=== PATIENT | male | born 1955 | race Caucasian/White ===

== ENCOUNTER → 2017-07-25 10:03 | Outpatient (CLI) | payer OTHER, MEDICAID, SELFPAY ==
[2017-07-19 11:36] VITALS: TEMP 37.2
--- NOTE | 2017-07-25 10:05 | DI.CT.S_ITS ---
PROCEDURE: CT CHEST ABD PEL W CON INDICATIONS: RESTAGING RENAL CELL CARCINOMA TECHNIQUE: After the administration of oral and intravenous contrast, 5 mm thick sections acquired from the lung apices to the symphysis. 5 mm coronal and sagittal reformats were performed, with additional 7 mm coronal MIP reformats through the lungs. For radiation dose reduction, the following was used: automated exposure control, adjustment of mA and/or kV according to patient size. COMPARISON: [facility], CT, THORAX WITH CONTRAST, 01/21/2017, 16:32. [facility], CT, CHEST/ABD/PEL WITH CONTRAST, 02/18/2017, 8:49. FINDINGS: Image quality: Excellent. CHEST: Lungs and pleura: There is a new small to moderate-sized left pleural effusion with associated mild compressive atelectasis. No new suspicious intrapulmonary mass lesions. The trachea and central airways are patent. Mediastinum: Heart size is normal. There is a new small pericardial effusion. Thoracic aorta and central pulmonary arteries are normal in size. There multiple enlarged confluent mediastinal and hilar lymph nodes which have increased in size compared to the prior study. A architectural representative prevascular anterior mediastinum node now measures up to 2.1 cm in short axis compared to 2.3 cm previously. Most of the nodes demonstrate internal hypoattenuation consistent with necrosis. Esophagus is normal in caliber. There is a small hiatal hernia. Chest wall: There are multiple enlarged left supraclavicular lymph nodes with a architectural representative node measuring 1.7 cm in short axis on series 2 image 13 increased from 1.0 cm previously. 4 Thyroid gland redemonstrates ill-defined left thyroid nodule measuring 2.7 cm. ABDOMEN: Solid organs: There is a small hypodense lesion within the left hepatic lobe measuring up to 8 mm which is too small to characterize but appear stable compared to prior study and likely represents a cyst. Biliary system is non dilated. There are interval postsurgical changes status post left nephrectomy and probable adrenalectomy as well as left splenectomy. The pancreatic body and tail extends into the surgical bed. There is abnormal soft tissue within the surgical bed tracking along the distal pancreas as well as along the left diaphragmatic rika which is thickened with abnormal enhancing soft tissue. The findings most likely represent recurrent or residual disease. There is asymmetric enlargement of the adjacent left psoas muscle which may represent mass involvement or postsurgical edema. There is a lobulated fluid collection in the surgical bed inferiorly measuring up to 7.3 x 3.2 cm likely representing a seroma or lymphocele. Peritoneum and bowel: Stomach and small bowel loops demonstrate normal wall thickness and caliber. There is mild segmental wall thickening of the colon distally including the transverse, descending, and sigmoid colon with mild pericolonic fat stranding. The findings are consistent with a nonspecific colitis. There is a small amount of intraperitoneal free fluid. There is hyperdensity tracking along the peritoneum within the pelvis suggestive of calcification. Nodes and vessels: There are extensive surgical clips within the retroperitoneum consistent with prior lymph node dissection. There are multiple residual enlarged lymph nodes including an aortocaval node measuring up to 1.5 cm and series 2 image 78 which is increased from 0.9 cm previously. There also enlarged retrocrural nodes with a architectural representative node measuring up to 2.3 cm, increased from 1.5 cm previously. Aorta and inferior vena cava are normal in size. Miscellaneous: No ventral hernias. PELVIS: Genitourinary: The bladder demonstrates mild wall thickening with mild associated fat stranding suggestive of a nonspecific cystitis. There is heterogeneous enlargement of the prostate. Miscellaneous: No inguinal hernias or adenopathy. Bones: No suspicious bony lesions. No vertebral body compression fractures. IMPRESSION: 1. Findings consistent with progression of metastatic disease with increased left supraclavicular, mediastinal, and hilar lymphadenopathy as well as increased retrocrural and retroperitoneal lymphadenopathy. 2. Postsurgical changes status post left nephrectomy, adrenalectomy, and splenectomy with abnormal soft tissue in the surgical bed, along the pancreas, and along the left diaphragmatic rika consistent with residual or recurrent disease. 3. Fluid collection within the inferior aspect of the surgical bed consistent with a seroma or lymphocele. 4. Mild segmental wall thickening of the distal colon consistent with a nonspecific mild infectious or inflammatory colitis. 5. Mild bladder wall thickening suggestive of a nonspecific cystitis. 6. New small to moderate-sized left pleural effusion. Dictated by: Ab Murillo M.D. on 07/25/2017 at 16:59 Approved by: Ab Murillo M.D. on 07/25/2017 at 17:12
--- NOTE | 2017-08-30 09:51 | ONC.NAV ---
*Sent bereavement card.
== END ==
PROVIDERS: Family Provider Family Medicine; PCP Family Medicine; Visit Provider Internal Medicine Hematology & Oncology
DX: C64.9 Malignant neoplasm of unspecified kidney, except renal pelvis (principal); R59.0 Localized enlarged lymph nodes; K63.9 Disease of intestine, unspecified; N32.89 Other specified disorders of bladder
CPT/HCPCS: 71260; 74177; Q9967

== ENCOUNTER 2017-08-13 12:17 | Inpatient (IN) | payer OTHER, MEDICAID, SELFPAY ==
[2017-08-13 14:19] VITALS: BP 117/84; PULSE 88; RESP 20; TEMP 36.8; O2SAT 98; BMI 21.5
--- NOTE | 2017-08-13 14:43 | ED_ITS ---
HPI - Abdominal Pain General Chief Complaint: Abdominal Pain Stated Complaint: 2 WKS THROWING UP Time Seen by Provider: 08/13/17 14:35 History of Present Illness HPI narrative: Patient is a 61-year-old male with known renal cell carcinoma currently receiving chemotherapy he is on his 2nd round. He has been vomiting and nauseous for the last 2 weeks his abdomen is also been distending. He is passing gas he had a bowel movement 2 days ago. No fever. He overall does not feel well. MD complaint: abdominal pain Related Data Home Medications Medication Instructions Recorded Confirmed sunitinib [Sutent] 50 mg PO DIRECTED #0 05/30/17 08/13/17 acetaminophen 500 mg PO Q4H PRN 08/13/17 08/13/17 clonazepam 1 mg PO QHS PRN 08/13/17 08/13/17 lorazepam 1 - 2 tab PO Q4H PRN 08/13/17 08/13/17 oxycodone 1 - 2 tab PO Q4H PRN 08/13/17 08/13/17 sennosides [senna] 1 tab PO PRN PRN 08/13/17 08/13/17 Allergies Allergy/AdvReac Type Severity Reaction Status Date / Time No Known Drug Allergies Allergy Verified 07/11/17 14:08 Review of Systems Review of Systems All systems reviewed & are unremarkable except as noted in HPI and below Constitutional Denies chills, Denies fever(s), Denies lethargy and Denies weakness Cardiovascular Denies dyspnea and Denies dyspnea on exertion Respiratory Denies cough, Denies dyspnea, Denies dyspnea on exertion and Denies wheezing Gastrointestinal Gastrointestinal: Reports as per HPI Musculoskeletal Denies back pain, Denies muscle weakness, Denies numbness and Denies tingling Neurologic Denies numbness, Denies tingling and Denies weakness Allergic/Immunologic Denies wheezing PFSH Medical History HTN (hypertension) (Acute) Renal cancer (Acute) Exam Initial Vital Signs Initial Vital Signs: Vital Signs Temperature 98.2 F 08/13/17 14:19 Pulse Rate 88 08/13/17 14:19 Respiratory Rate 20 08/13/17 14:19 Blood Pressure 117/84 H 08/13/17 14:19 Pulse Oximetry 98 08/13/17 14:19 Const General: cooperative and well developed Nutritional Appearance: well nourished Orientation: alert, awake, oriented x3 and not confused Chest Chest: normal inspection of the chest Resp Effort & Inspection: normal respiratory effort, able to speak in complete sentences, no respiratory distress and no use of accessory muscles Auscultation: clear to auscultation bilaterally, no rales, no rhonchi and no wheezes Cardio Rate: regular rate Rhythm: regular rhythm Heart Sounds: no click, no gallops, no murmurs and no rubs Pulses: normal peripheral pulses GI Other: All at distended nontender scar noted. Decreased bowel sounds. No guarding no rebound Skin General: no rashes or lesions noted, No jaundice and No petechiae Neuro General: alert, oriented x3, gait normal and no focal motor deficits Speech: speech normal Course Orders Ordered: ED Orders 08/13/17 14:50 Complete Blood Count AUTO DIFF Stat Comprehensive Metabolic Panel Stat Lipase Stat 08/13/17 14:52 CT abdomen pelvis w con Stat 08/13/17 15:32 Lactate (Lactic Acid) Stat 08/13/17 22:00 BMP [Basic Metabolic Panel] Routine Sodium Chloride (Normal Saline 0.9%) 1,000 mls @ 150 mls/hr IV CONT MELYSSA Last Infusion: 08/13/17 16:44 Dose: 0 mls/hr Admin: 08/13/17 15:10 Dose: 150 mls/hr Morphine Sulfate (Morphine) 4 mg IV Q4HR PRN PRN Reason: Pain, Severe Discontinued Medications Dextrose (D50w) 25 gm IV NOW ONE Stop: 08/13/17 16:35 Last Admin: 08/13/17 16:45 Dose: 25 gm Sodium Chloride (Normal Saline 0.9%) 1,000 mls @ 1,000 mls/hr IV BOLUS ONE Stop: 08/13/17 16:28 Last Admin: 08/13/17 16:45 Dose: 1,000 mls/hr Insulin Human Regular (Humulin R) 10 unit IV NOW ONE Stop: 08/13/17 16:35 Last Admin: 08/13/17 16:45 Dose: 10 unit Metoclopramide HCl (Reglan) 10 mg IV NOW ONE Stop: 08/13/17 17:55 Last Admin: 08/13/17 18:00 Dose: 10 mg Morphine Sulfate (Morphine) 4 mg IV NOW ONE Stop: 08/13/17 14:52 Last Admin: 08/13/17 15:09 Dose: 4 mg Morphine Sulfate (Morphine) 4 mg IV NOW ONE Stop: 08/13/17 18:11 Last Admin: 08/13/17 18:15 Dose: 4 mg Ondansetron HCl (Zofran) 4 mg IV NOW ONE Stop: 08/13/17 14:52 Last Admin: 08/13/17 15:09 Dose: 4 mg Ondansetron HCl (Zofran) 4 mg IV NOW ONE Stop: 08/13/17 15:50 Last Admin: 08/13/17 15:58 Dose: 4 mg Vital Signs - 8 hr 08/13/17 14:19 08/13/17 16:00 08/13/17 17:31 Temperature 98.2 F Pulse Rate 88 88 92 H Respiratory Rate 20 16 22 Blood Pressure 117/84 H Blood Pressure [Left Arm] 136/91 H 148/100 H Pulse Oximetry 98 100 99 08/13/17 18:30 Temperature Pulse Rate 92 H Respiratory Rate 20 Blood Pressure Blood Pressure [Left Arm] 115/84 H Pulse Oximetry 99 MDM - Abdominal Pain Lab Data Result diagrams: 08/13/17 14:50 08/13/17 14:50 Lab Results 08/13/17 08/13/17 08/13/17 Range/Units 14:50 14:50 15:32 WBC 14.3 H (4.5-11.0) X10^3/uL RBC 4.20 L (4.5-5.9) X10^6/uL Hgb 13.6 (13.5-17.5) g/dL Hct 38.6 L (41-53) % MCV 91.8 (80-100) fL MCH 32.3 (26-34) PG MCHC 35.2 (30-36) % RDW 21.0 H (11.6-14.8) % Plt Count 531 H (150-400) X10^3/uL Neut % (Auto) 84.9 H (50-75) % Lymph % (Auto) 10.0 L (25-40) % [place] % (Auto) 4.6 (3-14) % Eos % (Auto) 0.1 L (2-4) % Baso % (Auto) 0.4 (0-2) % Neut # (Auto) 42846 H (8985-3901) /uL RBC Morphology Not Reportable Poikilocytosis 1+ H Anisocytosis 1+ H Sodium 123 L (137-145) mmol/L Potassium 5.9 H (3.4-5.1) mmol/L Chloride 87 L (98-107) mmol/L Carbon Dioxide 25 (22-32) mmol/L BUN 52 H (9-20) mg/dL Creatinine 1.70 H (0.66-1.25) mg/dL Estimated GFR 41.2 L (>60) mL/min BUN/Creatinine Ratio 30.6 H (6-22) Glucose 112 H (80-110) mg/dL Lactate 1.3 (0.7-2.1) mmol/L Calcium 9.7 (8.4-10.2) mg/dL Total Bilirubin 0.7 (0.2-1.3) mg/dL AST 27 (17-59) IU/L ALT 20 L (21-72) IU/L Alkaline Phosphatase 63 (38-126) U/L Total Protein 7.0 (6.3-8.2) g/dL Albumin 4.1 (3.5-5.0) g/dL Globulin 2.9 (1.7-4.1) g/dL Albumin/Globulin Ratio 1.4 (1.0-2.8) Lipase 52 (23-300) U/L Imaging Data CT scan - abdomen: Radiologist's impression: PROCEDURE: CT ABDOMEN PELVIS W CON INDICATIONS: 61 year-old male with renal cell carcinoma and persistent vomiting. TECHNIQUE: After the administration of intravenous contrast, 5 mm thick sections acquired from the diaphragm to the symphysis. 5 mm coronal and sagittal reformats were acquired. For radiation dose reduction, the following was used: automated exposure control, adjustment of mA and/or kV according to patient size. COMPARISON: [facility], CT, CT CHEST ABD PEL W CON, 07/25/2017, 11:07. [facility], CT, CHEST/ABD/PEL WITH CONTRAST, 02/18/2017, 8:49. [facility], CT, IVP (ABD & PEL WWO CONTRAST), 01/04/2017, 9:15. FINDINGS: Image quality: Excellent. ABDOMEN: Lung bases: There is persistent small dependent left pleural effusion. Lung bases are clear. Heart size is normal. Solid organs: Liver is normal in size, with 8 mm anterior left hepatic lobe cyst as before. Gallbladder wall thickness is normal. Biliary system is non dilated. Pancreas enhances normally. Spleen is surgically absent. No adrenal nodules; left adrenal gland appears surgically absent. Patient is status post left nephrectomy as well, with soft tissue nodularity adjacent to the pancreatic tail are suspicious for local residual viable tumor. Right kidney demonstrates normal size, without hydronephrosis. Peritoneum and bowel: Large abdominal and pelvic ascites is now present, along with multifocal micronodular peritoneal enhancement. There is multifocal nodular enhancement of the greater omentum as well. Bowel loops demonstrate normal wall thickness and caliber. No free air. Nodes and vessels: There is persistent lenticular rim enhancing postoperative fluid collection anterior to the left psoas muscle. No retroperitoneal or mesenteric adenopathy by size criteria. Aorta and inferior vena cava are normal in size. Miscellaneous: No ventral hernias. PELVIS: Genitourinary: The bladder is incompletely distended at the time of scan. Prostate gland is normal in overall size. Miscellaneous: No inguinal hernias or adenopathy. Bones: No suspicious bony lesions. No vertebral body compression fractures. IMPRESSION: 1. Interval development of florid peritoneal carcinomatosis from renal cell carcinoma, with large abdominal and pelvic ascites, as well as diffuse peritoneal nodularity and greater omental involvement. No bowel obstruction. 2. Persistent small dependent left pleural effusion. 3. Status post left nephrectomy and adrenalectomy and splenectomy, with findings suspicious for residual viable neoplasm. Postoperative seroma or lymphocele anterior to the left psoas muscle persists. Dictated by: Luis E Simon M.D. on 08/13/2017 at 15:57 MDM Narrative Medical decision making narrative: Patient is hyponatremic and hyperkalemic with worsening metastasis and new onset ascites. He will be admitted for further management. He is given insulin and glucose for hyperkalemia. Pain is much better after morphine for his Dr. Quintanilla in the ED to see and evaluate patient. Happily accepts him. Discharge Plan Departure Patient Disposition: Admitted As Inpatient Clinical Impression: Acute hyponatremia, Acute hyperkalemia Admit Date/Time: 08/13/17 18:35 Admit Provider: Ehsan Quintanilla
--- NOTE | 2017-08-13 14:52 | DI.CT.S_ITS ---
PROCEDURE: CT ABDOMEN PELVIS W CON INDICATIONS: 61 year-old male with renal cell carcinoma and persistent vomiting. TECHNIQUE: After the administration of intravenous contrast, 5 mm thick sections acquired from the diaphragm to the symphysis. 5 mm coronal and sagittal reformats were acquired. For radiation dose reduction, the following was used: automated exposure control, adjustment of mA and/or kV according to patient size. COMPARISON: [facility], CT, CT CHEST ABD PEL W CON, 07/25/2017, 11:07. [facility], CT, CHEST/ABD/PEL WITH CONTRAST, 02/18/2017, 8:49. [facility], CT, IVP (ABD & PEL WWO CONTRAST), 01/04/2017, 9:15. FINDINGS: Image quality: Excellent. ABDOMEN: Lung bases: There is persistent small dependent left pleural effusion. Lung bases are clear. Heart size is normal. Solid organs: Liver is normal in size, with 8 mm anterior left hepatic lobe cyst as before. Gallbladder wall thickness is normal. Biliary system is non dilated. Pancreas enhances normally. Spleen is surgically absent. No adrenal nodules; left adrenal gland appears surgically absent. Patient is status post left nephrectomy as well, with soft tissue nodularity adjacent to the pancreatic tail are suspicious for local residual viable tumor. Right kidney demonstrates normal size, without hydronephrosis. Peritoneum and bowel: Large abdominal and pelvic ascites is now present, along with multifocal micronodular peritoneal enhancement. There is multifocal nodular enhancement of the greater omentum as well. Bowel loops demonstrate normal wall thickness and caliber. No free air. Nodes and vessels: There is persistent lenticular rim enhancing postoperative fluid collection anterior to the left psoas muscle. No retroperitoneal or mesenteric adenopathy by size criteria. Aorta and inferior vena cava are normal in size. Miscellaneous: No ventral hernias. PELVIS: Genitourinary: The bladder is incompletely distended at the time of scan. Prostate gland is normal in overall size. Miscellaneous: No inguinal hernias or adenopathy. Bones: No suspicious bony lesions. No vertebral body compression fractures. IMPRESSION: 1. Interval development of florid peritoneal carcinomatosis from renal cell carcinoma, with large abdominal and pelvic ascites, as well as diffuse peritoneal nodularity and greater omental involvement. No bowel obstruction. 2. Persistent small dependent left pleural effusion. 3. Status post left nephrectomy and adrenalectomy and splenectomy, with findings suspicious for residual viable neoplasm. Postoperative seroma or lymphocele anterior to the left psoas muscle persists. Dictated by: Luis E Simon M.D. on 08/13/2017 at 15:57 Approved by: Luis E Simon M.D. on 08/13/2017 at 16:10
[2017-08-13 15:08] LABS: Add Manual Diff / Slide Review NO; Basophils Percent Auto 0.4 % (0-2); Eosinophils Percent Auto 0.1 % (2-4); Hematocrit 38.6 % (41-53); Hemoglobin 13.6 g/dL (13.5-17.5); Mean Corpuscular HGB Conc 35.2 % (30-36); Mean Corpuscular Hemoglobin 32.3 PG (26-34); Mean Corpuscular Volume 91.8 fL (80-100); Monocytes Percent Auto 4.6 % (3-14); Neutrophils Absolute Auto 12100 /uL (3000-5900); Neutrophils Percent Auto 84.9 % (50-75); Platelet Count 531 X10^3/uL (150-400); White Blood Cell Count 14.3 X10^3/uL (4.5-11.0)
[2017-08-13] MEDS: ONDANSETRON 4 MG/2 ML INJ IV ×3 (15:09→21:44)
[2017-08-13] MEDS: MORPHINE 4 MG/ML INJ IV ×3 (15:09→21:44)
[2017-08-13] MEDS: SODIUM CHLORIDE 0.9% 1,000 ML 150 ML IV ×2 (15:10→22:24)
[2017-08-13 15:12] LABS: Alanine Aminotransferase 20 IU/L (21-72); Albumin 4.1 g/dL (3.5-5.0); Albumin Globulin Ratio 1.4 (1.0-2.8); Alkaline Phosphatase 63 U/L (38-126); Aspartate Aminotransferase 27 IU/L (17-59); BUN Creatinine Ratio 30.6 (6-22); Bilirubin Total 0.7 mg/dL (0.2-1.3); Blood Urea Nitrogen 52 mg/dL (9-20); Calcium 9.7 mg/dL (8.4-10.2); Carbon Dioxide 25 mmol/L (22-32); Chloride 87 mmol/L (98-107); Estimated Glomerular Filt Rate 41.2 mL/min (>60); Globulin 2.9 g/dL (1.7-4.1); Glucose 112 mg/dL (80-110); HEMOLYSIS 20 (0-50); Lipase 52 U/L (23-300); Sodium 123 mmol/L (137-145)
[2017-08-13 15:23] LABS: Potassium 5.9 mmol/L (3.4-5.1)
[2017-08-13 15:37] LABS: Anisocytosis 1+; Poikilocytosis 1+
[2017-08-13 15:57] LABS: Lactate (Lactic Acid) 1.3 mmol/L (0.7-2.1)
[2017-08-13 16:00] VITALS: BP 136/91; PULSE 88; RESP 16; O2SAT 100
[2017-08-13] MEDS: DEXTROSE 50 % IN WATER 25 GM/50 ML SYRINGE IV (16:45)
[2017-08-13] MEDS: SODIUM CHLORIDE 0.9% 1,000 ML 1000 ML IV (16:45)
[2017-08-13] MEDS: INSULIN REGULAR 100 UNIT/ML 3 ML VIAL 10 UNIT IV (16:45)
[2017-08-13 17:31] VITALS: BP 148/100; PULSE 92; RESP 22; O2SAT 99
[2017-08-13] MEDS: METOCLOPRAMIDE 10 MG/2 ML INJ IV (18:00)
[2017-08-13 18:30] VITALS: BP 115/84; PULSE 92; RESP 20; O2SAT 99
--- NOTE | 2017-08-13 19:22 | P.HP_ITS ---
History of Present Illness Chief complaint: Acute hyponatremia, acute hyperkalemia Narrative: Braulio Salinas is a 61 year old male admitted from the emergency room after presenting for weakness abdominal discomfort and distention and worsening of vomiting. Patient has history of metastatic renal cell carcinoma following nephrectomy. Patient has had progressive weakness. Surgically asplenic and chronic anemia and the setting of his oncology chemotherapy surgical treatment and progression. In the emergency room patient found to be very distended of abdomen of seem to be fluid filled and CT scan showed ascites as significant amount. Also showed evidence of implant on the peritoneum across the abdomen. Patient found to be hyponatremic and hyperkalemic as well as to have a an increased white count. He is aware that his treatment at this point was palliative not a curative. Patient History Medical History HTN (hypertension) (Acute) Renal cancer (Acute) Anemia (Acute) Ascites, malignant (Acute) Depression (Acute) Family & Social History Safety & Behavioral: Feels Safe in Current Yes Environment Been Physically Hurt or No Threatened By a Person Tobacco & Substance use: Substance Use Type marijuana Meds Home Medications Medication Instructions Recorded Confirmed Type sunitinib [Sutent] 50 mg PO DIRECTED #0 05/30/17 08/13/17 History acetaminophen 500 mg PO Q4H PRN 08/13/17 08/13/17 History clonazepam 1 mg PO QHS PRN 08/13/17 08/13/17 History lorazepam 1 - 2 tab PO Q4H PRN 08/13/17 08/13/17 History oxycodone 1 - 2 tab PO Q4H PRN 08/13/17 08/13/17 History sennosides [senna] 1 tab PO PRN PRN 08/13/17 08/13/17 History Allergies Allergy/AdvReac Type Severity Reaction Status Date / Time No Known Drug Allergies Allergy Verified 07/11/17 14:08 Exam Vital Signs (past 8 hours): Vital Signs - 8 hr 3 08/13/17 14:19 08/13/17 16:00 08/13/17 17:31 Temperature 98.2 F Pulse Rate 88 88 92 H Respiratory Rate 20 16 22 Blood Pressure 117/84 H Blood Pressure [Left Arm] 136/91 H 148/100 H Pulse Oximetry 98 100 99 3 08/13/17 18:30 Temperature Pulse Rate 92 H Respiratory Rate 20 Blood Pressure Blood Pressure [Left Arm] 115/84 H Pulse Oximetry 99 Pulse Oximetry 99 Oxygen Delivery Method Room Air Narrative Exam Narrative: Patient sitting in bed slightly jaundiced emaciated and with no significant distention of abdomen. Clear mind answer questions clearly PERRLA EOMs intact Lungs decreased breath sounds at bases but no rales CV is shows regular rate and rhythm without murmur or S3 no significant dependent edema Abdomen has nausea vomiting and quite distension has a lot of pressure and vague diffuse discomfort. Back without mass or undue tenderness Skin jaundiced throughout pale yellow color Extremities weak and emaciated with symmetrical movement neuro intact sensation and had Neuro shows patient alert speech clear cognitive function intact sensation and motor sensory are symmetrical Objective Labs Result Diagrams: 08/13/17 14:50 08/13/17 14:50 Labs: Laboratory Results - last 24 hr 08/13/17 08/13/17 08/13/17 14:50 14:50 15:32 WBC 14.3 H RBC 4.20 L Hgb 13.6 Hct 38.6 L MCV 91.8 MCH 32.3 MCHC 35.2 RDW 21.0 H Plt Count 531 H Neut % (Auto) 84.9 H Lymph % (Auto) 10.0 L [place] % (Auto) 4.6 Eos % (Auto) 0.1 L Baso % (Auto) 0.4 Neut # (Auto) 65883 H RBC Morphology Not Reportable Poikilocytosis 1+ H Anisocytosis 1+ H Sodium 123 L Potassium 5.9 H Chloride 87 L Carbon Dioxide 25 BUN 52 H Creatinine 1.70 H Estimated GFR 41.2 L BUN/Creatinine Ratio 30.6 H Glucose 112 H Lactate 1.3 Calcium 9.7 Total Bilirubin 0.7 AST 27 ALT 20 L Alkaline Phosphatase 63 Total Protein 7.0 Albumin 4.1 Globulin 2.9 Albumin/Globulin Ratio 1.4 Lipase 52 Assessment & Plan Plan: Plan: Assessment 1. Metastatic renal cell carcinoma papillary type 2 post left nephrectomy with splenectomy. Patient is subsequently over the last few weeks developed ascites and what looks like on CT scan now to be evidence of metastatic disease. His oncology providers had had had him on Sutent as a palliative treatment and patient is obviously failed that with progression of his disease. Assessment 2. Weakness and fatigue. This multifactorial certainly related to his underlying malignancy. May also be acutely aggravated by overall mild malnutrition and dehydration. Has also got hypo natremia to 123 and hyperkalemia which could affect this as well. Will add have patient on IV fluids and monitor those numbers relook at 10 this evening make sure they are improving and again look in the morning given normal saline going at this point. Will also keep anti nausea and pain Medications in place Assessment 3. Hyper scaly Iva. I suspect this to the renal function and electrolyte abnormalities with the ice and ascites and dehydration and vomiting. Will try to replace fluid and get the patient better hydrated and will use normal saline to try to improve his hypo natremia as well. Assessment 4. Patient's ascites most probably malignant at this point. I will discuss with Oncology in the morning about was there be any benefit for this gentleman with tapping his abdomen for some fluid to look for malignancy. I think that that is probably a commode point. Assessment 5. Pain. Neck is patient is got a ladder reasons for discomfort with distended abdomen and postoperative issues overall weakness. Will use MS for control tonight. Patient is a do not resuscitate candidate at this point Assessment 6 hypertension patient not hypertensive at this point will just monitor blood pressure and not continue his antihypertensives for now.
[2017-08-13 19:30] VITALS: BP 126/94; PULSE 96; RESP 16; TEMP 36.4; O2SAT 99
[2017-08-13 19:32] VITALS: BP 121/84; PULSE 91; RESP 14; O2SAT 98
[2017-08-13 19:34] VITALS: BMI 21.5
--- NOTE | 2017-08-13 20:09 | PC.NURSE ---
Pt arrived from ER to room 221. Alert/oriented. Stats minimal discomfort but no more than usual. IV infusing as per orders via pump w/o incidence. Assisted pt to BR, pt states he lost balance and went to knees and side. No apparent injury, notified, pt denies any discomfort. Call light w/in reach, bed alarm on for pt safety.
[2017-08-13 22:27] LABS: BUN Creatinine Ratio 33.6 (6-22); Blood Urea Nitrogen 47 mg/dL (9-20); Calcium 8.7 mg/dL (8.4-10.2); Carbon Dioxide 23 mmol/L (22-32); Chloride 92 mmol/L (98-107); Estimated Glomerular Filt Rate 51.5 mL/min (>60); Glucose 100 mg/dL (80-110); HEMOLYSIS 23 (0-50); Sodium 123 mmol/L (137-145)
[2017-08-13 22:28] LABS: Potassium 5.4 mmol/L (3.4-5.1)
--- NOTE | 2017-08-13 23:49 | PC.NURSE ---
[id number]- Dr. Guerin called via answering service to report, pt'.s requesting [employer] for pain. Awaiting call back, will monitor.
[2017-08-14] VITALS (8 sets, daily range): BP systolic 109–149; BP diastolic 61–103; PULSE 83–95; RESP 16–98; TEMP 35.9–36.9; O2SAT 85–98; BMI 22.7
--- NOTE | 2017-08-14 01:44 | PC.NURSE ---
DR. Guerin called back ordered Dilaudid EGG BUYER set @ 0.2 mg. every 10 mins. with 6 mg. 4 hours limit. EGG BUYER initiated & dosages verified with Lani Bo RN. & also verified with Co-ordinator Vielka Mitchell RN. Pt. Instructed how to use his EGG BUYER. Reported I used a EGG BUYER before when I had my surgery Will monitor.
[2017-08-14] MEDS: ONDANSETRON 4 MG/2 ML INJ IV ×4 (04:48→21:34)
[2017-08-14] MEDS: SODIUM CHLORIDE 0.9% 1,000 ML 150 ML IV ×3 (05:02→20:42)
[2017-08-14] MEDS: HYDROMORPHONE PCA 6 MG/30 ML PCA.VIAL IV ×2 (05:48→14:14)
[2017-08-14 05:57] LABS: Add Manual Diff / Slide Review NO; Basophils Percent Auto 0.3 % (0-2); Hematocrit 37.3 % (41-53); Hemoglobin 12.8 g/dL (13.5-17.5); Lymphocytes Percent Auto 4.7 % (25-40); Mean Corpuscular HGB Conc 34.2 % (30-36); Mean Corpuscular Hemoglobin 31.8 PG (26-34); Mean Corpuscular Volume 92.9 fL (80-100); Monocytes Percent Auto 8.6 % (3-14); Neutrophils Absolute Auto 10200 /uL (3000-5900); Neutrophils Percent Auto 86.4 % (50-75); Platelet Count 533 X10^3/uL (150-400); Red Blood Cell Count 4.01 X10^6/uL (4.5-5.9); Red Cell Distribution Width 21.2 % (11.6-14.8); White Blood Cell Count 11.8 X10^3/uL (4.5-11.0)
[2017-08-14 06:06] LABS: Alanine Aminotransferase 22 IU/L (21-72); Albumin 3.3 g/dL (3.5-5.0); Albumin Globulin Ratio 1.2 (1.0-2.8); Alkaline Phosphatase 54 U/L (38-126); Aspartate Aminotransferase 30 IU/L (17-59); BUN Creatinine Ratio 29.3 (6-22); Bilirubin Total 0.7 mg/dL (0.2-1.3); Blood Urea Nitrogen 44 mg/dL (9-20); Calcium 8.9 mg/dL (8.4-10.2); Carbon Dioxide 25 mmol/L (22-32); Chloride 92 mmol/L (98-107); Estimated Glomerular Filt Rate 47.6 mL/min (>60); Globulin 2.8 g/dL (1.7-4.1); Glucose 98 mg/dL (80-110); HEMOLYSIS < 15 (0-50); Sodium 126 mmol/L (137-145); Total Protein 6.1 g/dL (6.3-8.2)
[2017-08-14 06:07] LABS: Potassium 5.4 mmol/L (3.4-5.1)
[2017-08-14 07:09] LABS: Anisocytosis 1+; Poikilocytosis 1+
--- NOTE | 2017-08-14 08:48 | DI.US.S_ITS ---
PROCEDURE: US PARACENTESIS INDICATIONS: pericentisis TECHNIQUE: The indications, alternatives, benefits, risks, and complications of the procedure were explained to the patient. Written informed consent was obtained and placed in the chart. The abdomen and pelvis were examined sonographically, and an appropriate site was chosen for paracentesis. The skin was prepared and draped in the usual sterile fashion, and 1% lidocaine was infiltrated from the skin down through the peritoneal surface. A 19-gauge catheter-covered needle was then introduced into the peritoneal space, the catheter was advanced and the needle was withdrawn, and thereafter peritoneal fluid was withdrawn. The catheter was then removed and a dressing was applied. The fluid was discarded if the clinician did not order diagnostic testing of the fluid. COMPARISON: None. FINDINGS: Access site: Left of midline lower abdomen Needle: One-Step centesis catheter with introducer needle. Fluid volume and description: Unchanged clear yellow fluid, 5600 cc removed Fluid sent for diagnostic testing: Not requested Medications: 1% lidocaine for local anaesthesia. Complications: None. IMPRESSION: Successful ultrasound-guided paracentesis. Dictated by: Arthur Hoff M.D. on 08/14/2017 at 12:32 Approved by: Arthur Hoff M.D. on 08/14/2017 at 12:32
[2017-08-14 10:30] LABS: Prothrombin Time 10.8 SECONDS (10.1-12.7)
--- NOTE | 2017-08-14 12:24 | PC.NURSE ---
US assisted paracentesis at 1100 resulted with 5.6L of fluid removed. BP post procedure at 149/103. BP @ 1205 at 145/98. Patient states he has zero pain, denies SOB or nausea.
--- NOTE | 2017-08-14 14:06 | CM.DANOTE ---
DCP/Assessment: Reviewed chart. Patient is a 61yr old male admitted to [facility] with acute hyponatremia and hyperkalemia Primary Payor is 1)[employer] 2)Medicaid. PCP is Dr. Quintanilla. Met with patient and significant other/Linda at bedside explained CM/SW role. Patient alert and oriented at time of visit. Patient reports that he resides with Linda in [place] Patient actively seeks CA treatment for renal CA at [facility]. Pt. reports that he uses cane to ambulate on occasion. Pt. indicates that he is very [place] in both ears and does not use hearing aides. Patient does not drive at baseline and relies on family to provide transport to/from appointments. At this time patient does not anticipate any d/c planning needs. Notified patient and significant other/Linda that CM team would continue to follow throughout hospitalization. Patient aware and agreeable. P: Home when medically stable. Follow closely for d/c planning needs. VENKATESH Mccarthy
[2017-08-14] MEDS: SODIUM CHLORIDE 0.9% 1,000 ML 100 ML IV (20:37)
[2017-08-14] MEDS: HYDROMORPHONE PCA 6 MG/30 ML PCA.VIAL 4.6 MG IV (22:58)
[2017-08-15 00:17] VITALS: BP 110/67; PULSE 83; RESP 20; TEMP 37.2; O2SAT 94
[2017-08-15 04:39] VITALS: BP 107/63; PULSE 88; RESP 19; TEMP 37.1; O2SAT 95
[2017-08-15] MEDS: ONDANSETRON 4 MG/2 ML INJ IV (05:22)
[2017-08-15] MEDS: HYDROMORPHONE PCA 6 MG/30 ML PCA.VIAL IV (05:34)
[2017-08-15 06:01] LABS: Add Manual Diff / Slide Review NO; Basophils Percent Auto 0.5 % (0-2); Eosinophils Percent Auto 0.2 % (2-4); Hematocrit 34.4 % (41-53); Hemoglobin 11.8 g/dL (13.5-17.5); Lymphocytes Percent Auto 7.8 % (25-40); Mean Corpuscular HGB Conc 34.3 % (30-36); Mean Corpuscular Hemoglobin 31.7 PG (26-34); Mean Corpuscular Volume 92.6 fL (80-100); Monocytes Percent Auto 6.3 % (3-14); Neutrophils Absolute Auto 10100 /uL (3000-5900); Neutrophils Percent Auto 85.2 % (50-75); Platelet Count 480 X10^3/uL (150-400); Red Blood Cell Count 3.71 X10^6/uL (4.5-5.9); Red Cell Distribution Width 21.3 % (11.6-14.8); White Blood Cell Count 11.9 X10^3/uL (4.5-11.0)
[2017-08-15 06:02] LABS: Alanine Aminotransferase 25 IU/L (21-72); Albumin 2.6 g/dL (3.5-5.0); Albumin Globulin Ratio 1.1 (1.0-2.8); Alkaline Phosphatase 47 U/L (38-126); Aspartate Aminotransferase 21 IU/L (17-59); BUN Creatinine Ratio 26.2 (6-22); Bilirubin Total 0.5 mg/dL (0.2-1.3); Blood Urea Nitrogen 34 mg/dL (9-20); Calcium 8.2 mg/dL (8.4-10.2); Carbon Dioxide 24 mmol/L (22-32); Chloride 96 mmol/L (98-107); Estimated Glomerular Filt Rate 56.1 mL/min (>60); Globulin 2.4 g/dL (1.7-4.1); Glucose 85 mg/dL (80-110); HEMOLYSIS < 15 (0-50); Sodium 125 mmol/L (137-145)
[2017-08-15 06:09] LABS: Potassium 5.4 mmol/L (3.4-5.1)
[2017-08-15] MEDS: LORazepam 2 MG/ML SYRINGE 0.5 MG IV (06:27)
[2017-08-15 07:40] VITALS: BP 107/74; PULSE 91; RESP 16; TEMP 36.6; O2SAT 97
[2017-08-15] MEDS: ONDANSETRON 4 MG ODT 8 MG PO (09:45)
[2017-08-15] MEDS: OXYCODONE IR 10 MG TABLET PO ×2 (10:17→14:51)
[2017-08-15] MEDS: METOCLOPRAMIDE HCL 10 MG TABLET PO (10:21)
--- NOTE | 2017-08-15 10:46 | CM.DPNOTE ---
DC Note: DC order in place today. RN somewhat concerned about pt's metastatic disease process and pt/partner going home, pt quite vulnerable. Met w/pt and his partner Linda. Linda explains her main concern was about DC medications and Dr Quintanilla addressed these concerns. Pt/partner eager to return home and feel they have what they need. Pt is expected to f/u w/his Oncology provider to review options for the build up of fluid/routine taps ? etc. Encouraged pt/partner to contact Oncology Angel Mariee w/any questions or concerns. Both appreciative of the visit. Deny further needs. VENKATESH Urias
[2017-08-15 11:44] VITALS: BP 114/74; PULSE 86; RESP 16; TEMP 37.1; O2SAT 96
[2017-08-15] MEDS: LORazepam 1 MG TABLET PO (14:51)
== END 2017-08-15 15:40 | disposition expired | DRG 240 ==
LOC: ED 17:41 → AC 18:36
PROVIDERS: Admitting Provider Family Medicine; Emergency Provider Emergency Medicine; Family Provider Family Medicine; PCP Family Medicine; Visit Provider Family Medicine
DX: C78.6 Secondary malignant neoplasm of retroperitoneum and peritoneum (principal); R18.0 Malignant ascites; C64.9 Malignant neoplasm of unspecified kidney, except renal pelvis; E87.1 Hypo-osmolality and hyponatremia; C79.89 Secondary malignant neoplasm of other specified sites; E87.5 Hyperkalemia; E43 Unspecified severe protein-calorie malnutrition; E86.0 Dehydration; G89.3 Neoplasm related pain (acute) (chronic); D63.0 Anemia in neoplastic disease; I10 Essential (primary) hypertension; Z68.22 Body mass index [BMI] 22.0-22.9, adult; R53.0 Neoplastic (malignant) related fatigue; R11.2 Nausea with vomiting, unspecified
CPT/HCPCS: 36415; 36591; 49083; 74177; 80048; 80053; 83605; 83690; 85025; 85610; 96374; 96375; 96376; 99282; 99284; J2060; J2270; J2405; J2765; Q9967

== ENCOUNTER 2017-08-18 18:38 | Inpatient (IN) | payer OTHER, MEDICAID, SELFPAY ==
[2017-08-18 19:04] VITALS: BP 105/84; PULSE 103; RESP 18; TEMP 36.5; O2SAT 99
[2017-08-18 20:59] LABS: Add Manual Diff / Slide Review NO; Basophils Percent Auto 0.4 % (0-2); Eosinophils Percent Auto 0.1 % (2-4); Hematocrit 39.9 % (41-53); Hemoglobin 13.8 g/dL (13.5-17.5); Lymphocytes Percent Auto 4.3 % (25-40); Mean Corpuscular HGB Conc 34.5 % (30-36); Mean Corpuscular Hemoglobin 32.1 PG (26-34); Mean Corpuscular Volume 93.1 fL (80-100); Monocytes Percent Auto 3.3 % (3-14); Neutrophils Absolute Auto 12400 /uL (3000-5900); Neutrophils Percent Auto 91.9 % (50-75); Platelet Count 430 X10^3/uL (150-400); Red Blood Cell Count 4.29 X10^6/uL (4.5-5.9); Red Cell Distribution Width 20.9 % (11.6-14.8); White Blood Cell Count 13.4 X10^3/uL (4.5-11.0)
[2017-08-18] MEDS: ONDANSETRON 4 MG/2 ML INJ IV ×2 (21:01→22:33)
[2017-08-18 21:17] LABS: Prothrombin Time 10.6 SECONDS (10.1-12.7)
[2017-08-18 21:28] LABS: Anisocytosis 1+
[2017-08-18 21:29] LABS: Poikilocytosis 1+; Target Cells 1+
[2017-08-18 21:31] LABS: Alanine Aminotransferase 24 IU/L (21-72); Albumin 3.3 g/dL (3.5-5.0); Albumin Globulin Ratio 1.2 (1.0-2.8); Alkaline Phosphatase 52 U/L (38-126); Aspartate Aminotransferase 32 IU/L (17-59); BUN Creatinine Ratio 22.7 (6-22); Bilirubin Total 0.6 mg/dL (0.2-1.3); Blood Urea Nitrogen 34 mg/dL (9-20); Calcium 8.9 mg/dL (8.4-10.2); Carbon Dioxide 25 mmol/L (22-32); Chloride 90 mmol/L (98-107); Estimated Glomerular Filt Rate 47.6 mL/min (>60); Globulin 2.7 g/dL (1.7-4.1); Glucose 96 mg/dL (80-110); HEMOLYSIS < 15 (0-50); Lipase 43 U/L (23-300); Sodium 124 mmol/L (137-145)
[2017-08-18 21:34] VITALS: BP 117/90; PULSE 93; RESP 24; O2SAT 95
[2017-08-18 21:34] LABS: Potassium 5.9 mmol/L (3.4-5.1)
[2017-08-18 22:16] VITALS: BP 117/91; PULSE 100; RESP 19; O2SAT 96
[2017-08-18] MEDS: HYDROMORPHONE 0.5 MG INJ 1 MG IV (22:30)
--- NOTE | 2017-08-18 22:30 | ED_ITS ---
HPI - Abdominal Pain General Chief Complaint: Abdominal Pain Stated Complaint: fluid build up in stomach,vomitting Time Seen by Provider: 08/18/17 19:29 Source: patient Mode of arrival: ambulatory Limitations: no limitations History of Present Illness HPI narrative: Patient with history of renal cell carcinoma and the left nephrectomy presents to the emergency department with a recurrence of ascites and abdominal fullness. Additionally he has profound generalized weakness and a decreased appetite. He has not been eating or drinking for the past few days. He is taking oral chemotherapy for palliative reasons which is managed by local cancer care. He was recently admitted into the hospital with newly discovered ascites which was drained during the admission. He was admitted on August 13 and discharged after a few days. MD complaint: abdominal pain Onset (ago): day(s) Pain Consistency: constant Location: diffuse Severity: moderate Quality: cramping Radiation: none Migration to: no migration Relieving factors: nothing Exacerbating factors: nothing Associated symptoms: nausea, anorexia and other Related Data Home Medications Medication Instructions Recorded Confirmed sunitinib [Sutent] 50 mg PO DIRECTED #0 05/30/17 08/13/17 acetaminophen 500 mg PO Q4H PRN 08/13/17 08/13/17 sennosides 1 tab PO PRN PRN 08/13/17 08/13/17 Previous Rx's Medication Instructions Recorded lorazepam 1 mg PO TID #30 tab 08/15/17 metoclopramide HCl [Reglan] 10 mg PO Q6H #30 tab 08/15/17 ondansetron 8 mg PO Q6HR 14 Days #30 tab 08/15/17 oxycodone 10 mg PO Q4-6H PRN #30 tab 08/15/17 Allergies Allergy/AdvReac Type Severity Reaction Status Date / Time No Known Drug Allergies Allergy Verified 07/11/17 14:08 Review of Systems Review of Systems All systems reviewed & are unremarkable except as noted in HPI and below Constitutional Denies chills, Reports fatigue, Denies fever(s), Denies lethargy and Denies weakness Eyes Denies change in vision, Denies eye discharge, Denies irritation and Denies loss of vision ENT Ears, Nose, Mouth, and Throat: Denies change in voice, Denies neck pain and Denies sore throat Cardiovascular Denies chest pain, Denies irregular heart rhythm, Denies lightheadedness, Denies palpitations, Denies dyspnea, Denies dyspnea on exertion and Denies orthopnea Respiratory Denies cough, Denies dyspnea, Denies dyspnea on exertion and Denies wheezing Gastrointestinal Gastrointestinal: Reports abdominal pain, Reports bloating, Denies change in bowel habits, Denies diarrhea, Denies nausea and Denies vomiting Genitourinary Denies hematuria, Denies flank pain, Denies urinary incontinence and Denies urinary urgency Musculoskeletal Denies neck pain Integumentary/Breasts Denies pruritus, Denies erythema, Denies rash and Denies wounds Neurologic Denies confusion, Denies loss of vision and Denies weakness Psychiatric Denies anxiety, Denies confusion, Denies depression, Denies homicidal ideation and Denies suicidal ideation Endocrine Reports fatigue and Denies palpitations Hematologic/Lymphatic Denies easy bruising Allergic/Immunologic Denies wheezing PFSH Medical History HTN (hypertension) (Acute) Renal cancer (Acute) Anemia (Acute) Ascites, malignant (Acute) Depression (Acute) Social History household members: spouse, family and children Smoking Status: Never smoker alcohol intake: never Exam Narrative Exam Narrative: 61-year-old male is chronically ill, obviously dehydrated and malnourished. Initial Vital Signs Initial Vital Signs: Vital Signs Temperature 97.7 F 08/18/17 19:04 Pulse Rate 103 H 08/18/17 19:04 Respiratory Rate 18 08/18/17 19:04 Blood Pressure 105/84 H 08/18/17 19:04 Pulse Oximetry 99 08/18/17 19:04 Const General: in distress, disheveled, frail appearing and ill appearing Nutritional Appearance: underweight Orientation: alert, awake and oriented x3 HENMT Head: normal to inspection and other (Temporal wasting) Ears: hearing grossly normal bilaterally Nose: external nose normal Eyes General: appearance normal, both eyes and all related structures Eyelids: eyelids normal Conjunctivae: conjunctivae normal Sclera: sclerae normal Pupils: PERRL EOM: EOM intact bilaterally Neck Neck: normal visual inspection, trachea midline, No lymphadenopathy, No midline deformity and No JVD Lymphatic: No lymphedema Resp Effort & Inspection: normal respiratory effort, able to speak in complete sentences, no respiratory distress and no use of accessory muscles Auscultation: clear to auscultation bilaterally, no rales, no rhonchi and no wheezes Cardio Rate: regular rate Rhythm: regular rhythm Heart Sounds: no click, no gallops, no murmurs and no rubs Pulses: normal peripheral pulses GI Inspection: distended, No visible peristalsis and No caput medusae present Palpation: soft, no hepatosplenomegaly, No guarding, No pulsatile mass, No tender and ascites Percussion: fluid wave Auscultation: normal bowel sounds Back/Spine/Pelvis Back: No CVA tenderness Cervical Spine: cervical ROM normal and No pain with cervical ROM Thoracic/Lumbar Spine: thoracic and lumbar spine normal to inspection Skin General: no rashes or lesions noted Rashes: no rashes Other: tenting Neuro General: alert, awake, oriented x3 and oriented Cognition: normal cognition Speech: speech normal Motor: muscle tone normal throughout Extrem General: full ROM, no clubbing, cyanosis or edema, no pedal edema and no calf tenderness Psych Appearance: disheveled Mental Status: mental status grossly normal Speech and Movement: speech and movement normal Course Orders Ordered: ED Orders 08/18/17 20:50 Complete Blood Count AUTO DIFF Stat Comprehensive Metabolic Panel Stat Lipase Stat PT [Prothrombin Time INR] Stat 08/18/17 22:26 EKG-12 Lead Stat Hydromorphone HCl (Dilaudid) 1 mg IV Q4H PRN PRN Reason: Pain, Severe Sodium Chloride (Normal Saline 0.9%) 1,000 mls @ 150 mls/hr IV CONT MELYSSA Sodium Chloride (Normal Saline 0.9%) 1,000 mls @ 150 mls/hr IV BOLUS ONE Stop: 08/19/17 05:05 Last Admin: 08/18/17 22:43 Dose: 150 mls/hr Discontinued Medications Hydromorphone HCl (Dilaudid) 1 mg IV NOW ONE Stop: 08/18/17 22:25 Last Admin: 08/18/17 22:30 Dose: 1 mg Ondansetron HCl (Zofran) 4 mg IV NOW ONE Stop: 08/18/17 21:01 Last Admin: 08/18/17 21:01 Dose: 4 mg Ondansetron HCl (Zofran) 4 mg IV NOW ONE Stop: 08/18/17 22:25 Last Admin: 08/18/17 22:33 Dose: 4 mg Consultations Consultation #1: call to Dr. Guerin whom is happy to accept this patient on her service Vital Signs - 8 hr 08/18/17 19:04 08/18/17 21:34 08/18/17 22:16 Temperature 97.7 F Pulse Rate 103 H 93 H 100 H Respiratory Rate 18 24 19 Blood Pressure 105/84 H Blood Pressure [Left Arm] 117/90 H 117/91 H Pulse Oximetry 99 95 96 08/18/17 23:01 Temperature Pulse Rate 92 H Respiratory Rate 17 Blood Pressure Blood Pressure [Left Arm] 114/89 H Pulse Oximetry 94 MDM - Abdominal Pain Differential Diagnosis Differential diagnosis: Likely abdominal pain, gastroenteritis, pancreatitis and small bowel obstruction Medical Records Attestation: I reviewed the patient's medical records. Lab Data Attestation: I reviewed the patient's lab results. Result diagrams: 08/18/17 20:50 08/18/17 20:50 Lab Results 08/18/17 08/18/17 08/18/17 Range/Units 20:50 20:50 20:50 WBC 13.4 H (4.5-11.0) X10^3/uL RBC 4.29 L (4.5-5.9) X10^6/uL Hgb 13.8 (13.5-17.5) g/dL Hct 39.9 L (41-53) % MCV 93.1 (80-100) fL MCH 32.1 (26-34) PG MCHC 34.5 (30-36) % RDW 20.9 H (11.6-14.8) % Plt Count 430 H (150-400) X10^3/uL Neut % (Auto) 91.9 H (50-75) % Lymph % (Auto) 4.3 L (25-40) % [place] % (Auto) 3.3 (3-14) % Eos % (Auto) 0.1 L (2-4) % Baso % (Auto) 0.4 (0-2) % Neut # (Auto) 57474 H (0920-1564) /uL RBC Morphology Not Reportable Poikilocytosis 1+ H Anisocytosis 1+ H Target Cells 1+ H PT 10.6 (10.1-12.7) SECONDS INR 1.0 (0.9-1.3) Sodium 124 L (137-145) mmol/L Potassium 5.9 H (3.4-5.1) mmol/L Chloride 90 L (98-107) mmol/L Carbon Dioxide 25 (22-32) mmol/L BUN 34 H (9-20) mg/dL Creatinine 1.50 H (0.66-1.25) mg/dL Estimated GFR 47.6 L (>60) mL/min BUN/Creatinine Ratio 22.7 H (6-22) Glucose 96 (80-110) mg/dL Calcium 8.9 (8.4-10.2) mg/dL Total Bilirubin 0.6 (0.2-1.3) mg/dL AST 32 (17-59) IU/L ALT 24 (21-72) IU/L Alkaline Phosphatase 52 (38-126) U/L Total Protein 6.0 L (6.3-8.2) g/dL Albumin 3.3 L (3.5-5.0) g/dL Globulin 2.7 (1.7-4.1) g/dL Albumin/Globulin Ratio 1.2 (1.0-2.8) Lipase 43 (23-300) U/L MDM Narrative Medical decision making narrative: Patient has recurrence of his ascites which may be contributing to his generalized fatigue and lack of appetite. The patient has had vomiting and is unable to keep even clear liquids down at home, and obviously medications as well. He will need admission to the hospital for fluid hydration, stabilization of his condition, repeat paracentesis, and monitoring electrolytes. I discussed how to address this patient's hyperkalemia with Dr. overton and we agree that fluid hydration as opposed to aggressive treatment with loop diuretics, bronchodilators, etc is a more appropriate choice given his tenuous hydration status Discharge Plan Departure Patient Disposition: Admitted As Inpatient Clinical Impression: Admitted with dehydration, Acute hyperkalemia, Weakness, Ascites Admit Date/Time: 08/19/17 00:03 Admit Provider: Krysta Guerin
[2017-08-18] MEDS: SODIUM CHLORIDE 0.9% 1,000 ML 150 ML IV (22:43)
[2017-08-18 23:01] VITALS: BP 114/89; PULSE 92; RESP 17; O2SAT 94
[2017-08-19] VITALS (8 sets, daily range): BP systolic 105–131; BP diastolic 65–89; PULSE 86–105; RESP 16–20; TEMP 36.1–36.5; O2SAT 95–100; BMI 21.5; BMI 22.4
[2017-08-19] MEDS: SODIUM CHLORIDE 0.9% 1,000 ML 150 ML IV (00:50)
--- NOTE | 2017-08-19 02:27 | PC.NURSE ---
Admitted to room 211, from ER accompanied by his . Oriented to his room, Dilaudid CIRCUIT BOARD ASSEMBLER initiated 0.2 mg every 10 mins. with 6 mg. 4 hrs. limit. C/O nausea, paged Dr. Guerin, awaiting call back.
[2017-08-19] MEDS: LORazepam 2 MG/ML SYRINGE 1 MG IV ×5 (03:28→20:51)
[2017-08-19] MEDS: HYDROMORPHONE PCA 6 MG/30 ML PCA.VIAL IV ×3 (05:29→23:20)
[2017-08-19 05:47] LABS: Basophils Percent Auto 0.2 % (0-2); Eosinophils Percent Auto 0.1 % (2-4); Hemoglobin 13.6 g/dL (13.5-17.5); Lymphocytes Percent Auto 10.8 % (25-40); Mean Corpuscular HGB Conc 34.1 % (30-36); Mean Corpuscular Hemoglobin 31.8 PG (26-34); Mean Corpuscular Volume 93.3 fL (80-100); Monocytes Percent Auto 3.3 % (3-14); Neutrophils Absolute Auto 9900 /uL (3000-5900); Neutrophils Percent Auto 85.6 % (50-75); Platelet Count 406 X10^3/uL (150-400); Red Blood Cell Count 4.29 X10^6/uL (4.5-5.9); Red Cell Distribution Width 20.8 % (11.6-14.8); White Blood Cell Count 11.5 X10^3/uL (4.5-11.0)
[2017-08-19 05:57] LABS: HEMOLYSIS < 15 (0-50)
[2017-08-19 05:58] LABS: Alanine Aminotransferase 22 IU/L (21-72); Albumin 2.8 g/dL (3.5-5.0); Albumin Globulin Ratio 1.1 (1.0-2.8); Alkaline Phosphatase 44 U/L (38-126); Aspartate Aminotransferase 28 IU/L (17-59); BUN Creatinine Ratio 21.3 (6-22); Bilirubin Total 0.7 mg/dL (0.2-1.3); Blood Urea Nitrogen 34 mg/dL (9-20); Calcium 8.7 mg/dL (8.4-10.2); Carbon Dioxide 24 mmol/L (22-32); Chloride 93 mmol/L (98-107); Estimated Glomerular Filt Rate 44.2 mL/min (>60); Globulin 2.5 g/dL (1.7-4.1); Glucose 95 mg/dL (80-110); Sodium 124 mmol/L (137-145); Total Protein 5.3 g/dL (6.3-8.2)
[2017-08-19 06:16] LABS: Potassium 6.8 mmol/L (3.4-5.1)
[2017-08-19 06:18] LABS: Add Manual Diff / Slide Review SLIDE REVIEW
[2017-08-19 06:23] LABS: Anisocytosis 1+
[2017-08-19 06:25] LABS: Schistocytes 1+
[2017-08-19 06:29] LABS: Acanthocytes 1+; Burr Cells 1+
[2017-08-19 06:30] LABS: Poikilocytosis 2+
--- NOTE | 2017-08-19 06:55 | PC.NURSE ---
Dr. Guerin paged back, to report sodium 124. Clarify if . still want to give Lasix 20 mg. IVP. awaiting call back.
[2017-08-19] MEDS: FUROSEMIDE 20 MG/2 ML VIAL IV (07:09)
--- NOTE | 2017-08-19 07:47 | PC.NURSE ---
Dr. Conte called, okay to give Lasix with sodium of 124. 20 mg. Lasix admin.
[2017-08-19] MEDS: SODIUM CHLORIDE 0.9% 1,000 ML 100 ML IV ×2 (07:53→09:21)
--- NOTE | 2017-08-19 08:24 | PM.HP.1 ---
History of Present Illness Date Patient Seen: 08/19/17 Time Patient Seen: 08:24 Chief complaint: fluid build up in stomach,vomitting Narrative: Braulio Salinas is a 61 year old male recently discharged from the hospital for dehydration weakness nausea and vomiting and ascites. Patient has metastatic renal cancer. On palliative care. Apparently after he had 6 L of ascites drained of his abdomen he had been feeling slightly better for maybe to 12 hr. Jet like it started to build back. When he went home he was basically progressively unable to eat with some vomiting and having increasing pain. He has not had any fevers or chills. No other significant new changes. This progressively feeling like he was before he got admitted the last time. No other significant new changes or complaints. Main issue with pain as his abdomen. He describes it is a low grade 3/10. Stable. Sometimes gets worse. Feels like it was better right after it was drained but otherwise has had no change. Review systems is otherwise unremarkable on all 12 systems. Past medical history hypertension, renal cell cancer, anemia, ascites malignant, depression Past surgical history left nephrectomy. Family history is significant for father with mesothelioma and mother with probable pancreatic cancer. Social history lives with . Unemployed. Good support. Review of systems all negative except for listed above. Patient History Medical History HTN (hypertension) (Acute) Renal cancer (Acute) Anemia (Acute) Ascites, malignant (Acute) Depression (Acute) Family & Social History Social History: household members spouse,family,children Prior Living Arrangements House Safety & Behavioral: Feels Safe in Current Yes Environment Been Physically Hurt or No Threatened By a Person Suicidal Ideation Description None Suicide Plan Description No Plan Tobacco & Substance use: Smoking Status Never smoker alcohol intake never Substance Use Type marijuana Meds Home Medications Medication Instructions Recorded Confirmed Type sunitinib [Sutent] 50 mg PO DIRECTED #0 05/30/17 08/19/17 History acetaminophen 500 mg PO Q4H PRN 08/13/17 08/19/17 History sennosides 1 tab PO PRN PRN 08/13/17 08/19/17 History lorazepam 1 mg PO TID #30 tab 08/15/17 08/19/17 Rx metoclopramide HCl [Reglan] 10 mg PO Q6H #30 tab 08/15/17 08/19/17 Rx ondansetron 8 mg PO Q6HR 14 Days #30 tab 08/15/17 08/19/17 Rx oxycodone 10 mg PO Q4-6H PRN #30 tab 08/15/17 08/19/17 Rx Allergies Allergy/AdvReac Type Severity Reaction Status Date / Time No Known Drug Allergies Allergy Verified 07/11/17 14:08 Exam Vital Signs (past 8 hours): Vital Signs - 8 hr 08/19/17 00:45 08/19/17 04:48 08/19/17 07:16 Temperature 97.5 F L 97.5 F L Pulse Rate 86 94 H 94 H Respiratory Rate 20 20 Blood Pressure 117/87 H 117/87 H 121/89 H Pulse Oximetry 100 100 08/19/17 07:22 Temperature 97.7 F Pulse Rate 93 H Respiratory Rate 16 Blood Pressure 125/89 H Pulse Oximetry 96 Pulse Oximetry 96 Oxygen Delivery Method Room Air Narrative Exam Narrative: Alert elderly male fatigued in appearance much older than stated age. Skin slightly decreased turgor. No rash. Eyes showed normal color. No jaundice. Mucous membranes dry. Neck is supple without adenopathy JVD or bruits. Lungs are clear. Heart's regular rate and rhythm with a 102 systolic murmur best heard left sternal border. Abdomen is mildly distended mildly tender slight decrease in bowel sounds. Positive fluid wave no rebound guarding no masses extremities without cyanosis clubbing edema. Neurologic exam is nonfocal. Psych is emotionally appears to be intact interactive and appropriate. Objective Labs Result Diagrams: 08/19/17 05:23 08/19/17 05:23 Labs: Laboratory Results - last 24 hr 08/18/17 08/18/17 08/18/17 20:50 20:50 20:50 WBC 13.4 H RBC 4.29 L Hgb 13.8 Hct 39.9 L MCV 93.1 MCH 32.1 MCHC 34.5 RDW 20.9 H Plt Count 430 H Neut % (Auto) 91.9 H Lymph % (Auto) 4.3 L [place] % (Auto) 3.3 Eos % (Auto) 0.1 L Baso % (Auto) 0.4 Neut # (Auto) 93978 H RBC Morphology Not Reportable Poikilocytosis 1+ H Anisocytosis 1+ H Target Cells 1+ H Enzo Cells Acanthocytes (Spur) Schistocytes PT 10.6 INR 1.0 Sodium 124 L Potassium 5.9 H Chloride 90 L Carbon Dioxide 25 BUN 34 H Creatinine 1.50 H Estimated GFR 47.6 L BUN/Creatinine Ratio 22.7 H Glucose 96 Calcium 8.9 Total Bilirubin 0.6 AST 32 ALT 24 Alkaline Phosphatase 52 Total Protein 6.0 L Albumin 3.3 L Globulin 2.7 Albumin/Globulin Ratio 1.2 Lipase 43 08/19/17 08/19/17 05:23 05:23 WBC 11.5 H RBC 4.29 L Hgb 13.6 Hct 40.0 L MCV 93.3 MCH 31.8 MCHC 34.1 RDW 20.8 H Plt Count 406 H Neut % (Auto) 85.6 H Lymph % (Auto) 10.8 L [place] % (Auto) 3.3 Eos % (Auto) 0.1 L Baso % (Auto) 0.2 Neut # (Auto) 9900 H RBC Morphology Not Reportable Poikilocytosis 2+ H Anisocytosis 1+ H Target Cells Enzo Cells 1+ H Acanthocytes (Spur) 1+ Schistocytes 1+ H PT INR Sodium 124 L Potassium 6.8 H* Chloride 93 L Carbon Dioxide 24 BUN 34 H Creatinine 1.60 H Estimated GFR 44.2 L BUN/Creatinine Ratio 21.3 Glucose 95 Calcium 8.7 Total Bilirubin 0.7 AST 28 ALT 22 Alkaline Phosphatase 44 Total Protein 5.3 L Albumin 2.8 L Globulin 2.5 Albumin/Globulin Ratio 1.1 Lipase Assessment & Plan Plan: Plan: Hyperkalemia. Will begin Kayexalate today. Re-evaluate in a.m.. Also will start spironolactone see if that makes a difference in long-term management. Will discuss with surgeons once I know exactly what is going on about possible placement of permanent drainage but will see how things go. Dehydration. Will continue gentle hydration and follow potentially going to be a longstanding issue with his ascites and metastatic disease. Metastatic renal cell cancer. On palliative chemotherapy. We will see if we can get that started soon. Got to get his nausea controlled. Will discuss with oncologist depending on how things respond. Abdominal pain. 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 Secondary to ascites and metastatic disease. Will need long-term management plan. History of hypertension. Stable. Hyponatremia. Patient has been about this level for some time. I do not think this is a major change and will be following daily. GI prophylaxis none needed at this time. DVT prophylaxis SCDs and Lovenox. Code status. Discussed with him and his DNR is his choice. Disposition. This is a very difficult case with complicated issues. Palliative Care is something that needs to be done and will wonder about possible to setting up frequent ascites removal or possible put in some kind of permanent situation. Will need to discuss with surgeons. Question is whether hospice will be needed. We will have to find this out over the next few days. Clearly will be here at least 48 hr until we can get him improved. I do not think he has infected shows no other signs of issues. Discussed with both him and his . . Quality VTE Deep Vein Thrombosis/Pulmonary Embolism Present on Admission: No
--- NOTE | 2017-08-19 08:28 | P.HP_ITS ---
History of Present Illness Date Patient Seen: 08/19/17 Time Patient Seen: 08:24 Chief complaint: fluid build up in stomach,vomitting Narrative: Braulio Salinas is a 61 year old male recently discharged from the hospital for dehydration weakness nausea and vomiting and ascites. Patient has metastatic renal cancer. On palliative care. Apparently after he had 6 L of ascites drained of his abdomen he had been feeling slightly better for maybe to 12 hr. [place] like it started to build back. When he went home he was basically progressively unable to eat with some vomiting and having increasing pain. He has not had any fevers or chills. No other significant new changes. This progressively feeling like he was before he got admitted the last time. No other significant new changes or complaints. Main issue with pain as his abdomen. He describes it is a low grade 3/10. Stable. Sometimes gets worse. Feels like it was better right after it was drained but otherwise has had no change. Review systems is otherwise unremarkable on all 12 systems. Past medical history hypertension, renal cell cancer, anemia, ascites malignant , depression Past surgical history left nephrectomy. Family history is significant for father with mesothelioma and mother with probable pancreatic cancer. Social history lives with . Unemployed. Good support. Review of systems all negative except for listed above. Patient History Medical History HTN (hypertension) (Acute) Renal cancer (Acute) Anemia (Acute) Ascites, malignant (Acute) Depression (Acute) Family & Social History Social History: household members spouse,family,children Prior Living Arrangements House Safety & Behavioral: Feels Safe in Current Yes Environment Been Physically Hurt or No Threatened By a Person Suicidal Ideation Description None Suicide Plan Description No Plan Tobacco & Substance use: Smoking Status Never smoker alcohol intake never Substance Use Type marijuana Meds Home Medications Medication Instructions Recorded Confirmed Type sunitinib [Sutent] 50 mg PO DIRECTED #0 05/30/17 08/19/17 History acetaminophen 500 mg PO Q4H PRN 08/13/17 08/19/17 History sennosides 1 tab PO PRN PRN 08/13/17 08/19/17 History lorazepam 1 mg PO TID #30 tab 08/15/17 08/19/17 Rx metoclopramide HCl [Reglan] 10 mg PO Q6H #30 tab 08/15/17 08/19/17 Rx ondansetron 8 mg PO Q6HR 14 Days #30 tab 08/15/17 08/19/17 Rx oxycodone 10 mg PO Q4-6H PRN #30 tab 08/15/17 08/19/17 Rx Allergies Allergy/AdvReac Type Severity Reaction Status Date / Time No Known Drug Allergies Allergy Verified 07/11/17 14:08 Exam Vital Signs (past 8 hours): Vital Signs - 8 hr 3 08/19/17 00:45 08/19/17 04:48 08/19/17 07:16 Temperature 97.5 F L 97.5 F L Pulse Rate 86 94 H 94 H Respiratory Rate 20 20 Blood Pressure 117/87 H 117/87 H 121/89 H Pulse Oximetry 100 100 3 08/19/17 07:22 Temperature 97.7 F Pulse Rate 93 H Respiratory Rate 16 Blood Pressure 125/89 H Pulse Oximetry 96 Pulse Oximetry 96 Oxygen Delivery Method Room Air Narrative Exam Narrative: Alert elderly male fatigued in appearance much older than stated age. Skin slightly decreased turgor. No rash. Eyes showed normal color. No jaundice. Mucous membranes dry. Neck is supple without adenopathy JVD or bruits. Lungs are clear. Heart's regular rate and rhythm with a 102 systolic murmur best heard left sternal border. Abdomen is mildly distended mildly tender slight decrease in bowel sounds. Positive fluid wave no rebound guarding no masses extremities without cyanosis clubbing edema. Neurologic exam is nonfocal. Psych is emotionally appears to be intact interactive and appropriate. Objective Labs Result Diagrams: 08/19/17 05:23 08/19/17 05:23 Labs: Laboratory Results - last 24 hr 08/18/17 08/18/17 08/18/17 20:50 20:50 20:50 WBC 13.4 H RBC 4.29 L Hgb 13.8 Hct 39.9 L MCV 93.1 MCH 32.1 MCHC 34.5 RDW 20.9 H Plt Count 430 H Neut % (Auto) 91.9 H Lymph % (Auto) 4.3 L [place] % (Auto) 3.3 Eos % (Auto) 0.1 L Baso % (Auto) 0.4 Neut # (Auto) 48075 H RBC Morphology Not Reportable Poikilocytosis 1+ H Anisocytosis 1+ H Target Cells 1+ H [place] Cells Acanthocytes (Spur) Schistocytes PT 10.6 INR 1.0 Sodium 124 L Potassium 5.9 H Chloride 90 L Carbon Dioxide 25 BUN 34 H Creatinine 1.50 H Estimated GFR 47.6 L BUN/Creatinine Ratio 22.7 H Glucose 96 Calcium 8.9 Total Bilirubin 0.6 AST 32 ALT 24 Alkaline Phosphatase 52 Total Protein 6.0 L Albumin 3.3 L Globulin 2.7 Albumin/Globulin Ratio 1.2 Lipase 43 08/19/17 08/19/17 05:23 05:23 WBC 11.5 H RBC 4.29 L Hgb 13.6 Hct 40.0 L MCV 93.3 MCH 31.8 MCHC 34.1 RDW 20.8 H Plt Count 406 H Neut % (Auto) 85.6 H Lymph % (Auto) 10.8 L [place] % (Auto) 3.3 Eos % (Auto) 0.1 L Baso % (Auto) 0.2 Neut # (Auto) 9900 H RBC Morphology Not Reportable Poikilocytosis 2+ H Anisocytosis 1+ H Target Cells [place] Cells 1+ H Acanthocytes (Spur) 1+ Schistocytes 1+ H PT INR Sodium 124 L Potassium 6.8 H* Chloride 93 L Carbon Dioxide 24 BUN 34 H Creatinine 1.60 H Estimated GFR 44.2 L BUN/Creatinine Ratio 21.3 Glucose 95 Calcium 8.7 Total Bilirubin 0.7 AST 28 ALT 22 Alkaline Phosphatase 44 Total Protein 5.3 L Albumin 2.8 L Globulin 2.5 Albumin/Globulin Ratio 1.1 Lipase Assessment & Plan Plan: Plan: Hyperkalemia. Will begin Kayexalate today. Re-evaluate in a.m.. Also will start spironolactone see if that makes a difference in long-term management. Will discuss with surgeons once I know exactly what is going on about possible placement of permanent drainage but will see how things go. Dehydration. Will continue gentle hydration and follow potentially going to be a longstanding issue with his ascites and metastatic disease. Metastatic renal cell cancer. On palliative chemotherapy. We will see if we can get that started soon. Got to get his nausea controlled. Will discuss with oncologist depending on how things respond. Abdominal pain. 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 Secondary to ascites and metastatic disease. Will need long-term management plan. History of hypertension. Stable. Hyponatremia. Patient has been about this level for some time. I do not think this is a major change and will be following daily. GI prophylaxis none needed at this time. DVT prophylaxis SCDs and Lovenox. Code status. Discussed with him and his DNR is his choice. Disposition. This is a very difficult case with complicated issues. Palliative Care is something that needs to be done and will wonder about possible to setting up frequent ascites removal or possible put in some kind of permanent situation. Will need to discuss with surgeons. Question is whether hospice will be needed. We will have to find this out over the next few days. Clearly will be here at least 48 hr until we can get him improved. I do not think he has infected shows no other signs of issues. Discussed with both him and his . . Quality VTE Deep Vein Thrombosis/Pulmonary Embolism Present on Admission: No
[2017-08-19] MEDS: ONDANSETRON 8 MG in SODIUM CHLORIDE 0.9% 50 ML 216 ML IV ×2 (08:52→17:54)
--- NOTE | 2017-08-19 08:59 | CM.DANOTE ---
Addendum entered by Yolanda Robert LPN 08/20/17 11:18: Did speak yesterday afternoon with Eileen as planned and after she met with pt and Linda. She states that pt is relatively new to their clinic and that thus far all decisions were for aggressive symtoom management with a palliative goal. She very much agreed that a hospice info visit would be appropriate and said that, as per oncology protocol, she would discuss further with her team. Original Note: DCP: case received, EMR reviewed. READMIT: noted. PT is a 61 year old male who admitted just after midnight this morning to care of Dr. Navarro. PCP: Dr. Guerin. Oncology care under care of [facility]/Medicaid Dr. Navarro states that the current cancer treatment plan is of a palliative nature and that pt will likely continue to need admissions for paracentesis to manage symptoms. Agreed to call delivery sales worker Eileen Mckinley to see what discussions have been held in terms of advanced directive planning. Done. Eileen is familiar with pt and will be over to see him today and then will meet with this CM to give some guidance going forward. Met now with pt. Introduced self and role. He was found lying in bed, curled around an emesis bag, appears very frail. Pt confirms he lives with his partner Linda and Linda's brother and 18 year old granddaughter. He notes all are helpful to him. Will be following as POC unfolds.
[2017-08-19] MEDS: SODIUM CHLORIDE 0.45% 1,000 ML 125 ML IV ×2 (09:23→22:00)
--- NOTE | 2017-08-19 10:04 | PC.NURSE ---
Addendum entered by Jasmin Beatty R.N. 08/19/17 14:32: gi/gu - given 1mg iv prior to lunch, pt smelled the kayexalate but could not drink any, assisted up to chair for few sips cran juice, later attempted to void several times and unsuccessful, while bladder scan showed greater 900, pt does have ascites and notified that pt had not voided since am and had tried, new order to place chapman with immediate return 350ml conc urine, placed on l side and then admin the kayexalate as enema. lockstitch hemmer available and pt able to use for the discomfort. Original Note: AM NOTE - drowsy, lying on l side, abd distended, firm, when awakened, tried a few sips clear ensure and had onset nausea and emesis green bile like fluid, oral care provided, given 8mg iv zofran and later 1mg iv ativan to help control nausea, gen weakness, lockstitch hemmer dilaudid 0.2/10/6mh, ra 94%, discussed new medication and will try when nausea has resolved.
[2017-08-19] MEDS: ENOXAPARIN 40 MG/0.4 ML SYRINGE SUBCUT (10:24)
--- NOTE | 2017-08-19 11:42 | DIET.PN ---
Addendum entered by Fadia Bernstein 08/19/17 11:47: Note: pt diagnosed with severe chronic illness-related malnutrition during previous admission. No change to malnutrition status ATT. Original Note: Assessed pt last week during previous admission. Readmitted last night for fluid buildup, pt is currently unable to keep anything down. No dietary interventions appropriate at this time. Will monitor pt's status and if he resumes being able to keep food / fluids down, will provide ONS and whatever else he can stomach (and kitchen has available) to support nutritional repletion. Celeste Carlos, tax services intern Fadia Bernstein RDN
[2017-08-19] MEDS: SODIUM POLYSTYRENE SULFON/SORB 15 GM/60 ML CUP 30 GM PR (14:09)
[2017-08-19] MEDS: SODIUM CHLORIDE 0.9% 1,000 ML 1000 ML IV (18:30)
[2017-08-20] VITALS (7 sets, daily range): BP systolic 101–122; BP diastolic 61–88; PULSE 74–99; RESP 12–18; TEMP 35.6–36.8; O2SAT 96–97
--- NOTE | 2017-08-20 | DI.US.S_ITS ---
PROCEDURE: US ABDOMEN LIMITED INDICATIONS: history of abd fluid with question need for drainage TECHNIQUE: Real-time focused scanning was performed of the abdomen, with image documentation. COMPARISON: [facility], US, US PARACENTESIS, 08/14/2017, 10:58. [facility], CT, CT ABDOMEN PELVIS W CON, 08/13/2017, 15:30. [facility], CT, CT CHEST ABD PEL W CON, 07/25/2017, 11:07. FINDINGS: Reaccumulation of a moderately large amount of free fluid within the peritoneal space after paracentesis 08/14/17. IMPRESSION: Repeat paracentesis is anticipated for later this morning, under ultrasound guidance. Dictated by: Mckinley Pal M.D. on 08/20/2017 at 9:26 Approved by: Mckinley Pal M.D. on 08/20/2017 at 9:33
--- NOTE | 2017-08-20 00:07 | PC.NURSE ---
Wendy shift- Pt with continuous N/V, medicated with 8mg zofran in 50mL NS, pt reports this works best, in addition to 1mg ativan Q-2hrs PRN. 99%RA, LS clear, ABD severe distended. Dr Navarro new order for 1L NS bolus this shift, then back to .45% NS @ 125. Dilaudid QUALIFICATIONS EXAMINER in place and pt used 1.6mg this shift. Melo placed in AM, 100mL brown urine out this shift. Pt up to BRP for scant BM x 3. Telemetry with NSR and ST (105). rooming in, call light in reach and bed alarm on.
[2017-08-20] MEDS: LORazepam 2 MG/ML SYRINGE 1 MG IV ×3 (02:31→19:24)
[2017-08-20] MEDS: HYDROMORPHONE PCA 6 MG/30 ML PCA.VIAL IV ×3 (05:20→23:10)
[2017-08-20] MEDS: ONDANSETRON 8 MG in SODIUM CHLORIDE 0.9% 50 ML 216 ML IV (05:23)
[2017-08-20 05:45] LABS: Basophils Percent Auto 0.3 % (0-2); Eosinophils Percent Auto 0.1 % (2-4); Hematocrit 39.7 % (41-53); Hemoglobin 13.5 g/dL (13.5-17.5); Lymphocytes Percent Auto 4.2 % (25-40); Mean Corpuscular HGB Conc 33.9 % (30-36); Mean Corpuscular Hemoglobin 31.9 PG (26-34); Mean Corpuscular Volume 93.9 fL (80-100); Monocytes Percent Auto 4.4 % (3-14); Neutrophils Absolute Auto 10800 /uL (3000-5900); Platelet Count 376 X10^3/uL (150-400); Red Blood Cell Count 4.22 X10^6/uL (4.5-5.9); Red Cell Distribution Width 20.7 % (11.6-14.8); White Blood Cell Count 11.9 X10^3/uL (4.5-11.0)
[2017-08-20 05:48] LABS: Add Manual Diff / Slide Review SLIDE REVIEW
[2017-08-20 05:52] LABS: Blood Urea Nitrogen 40 mg/dL (9-20); Calcium 8.3 mg/dL (8.4-10.2); Carbon Dioxide 21 mmol/L (22-32); Chloride 91 mmol/L (98-107); Glucose 102 mg/dL (80-110); HEMOLYSIS < 15 (0-50); Sodium 121 mmol/L (137-145)
[2017-08-20 06:07] LABS: Poikilocytosis 1+
[2017-08-20 06:08] LABS: Acanthocytes 1+; Anisocytosis 1+
[2017-08-20 06:09] LABS: Burr Cells 1+
--- NOTE | 2017-08-20 06:47 | PC.NURSE ---
Dr. Navarro notified chapman only 20 cc out. Ordered 1 liter NS bolus, will implement order.
[2017-08-20] MEDS: SODIUM CHLORIDE 0.9% 1,000 ML 1000 ML IV (06:57)
--- NOTE | 2017-08-20 08:33 | PM.PN.1 ---
Subjective Date Patient Seen: 08/20/17 Time Patient Seen: 08:33 Interval history: Overall patient feeling maybe slightly worse. Was unable to take much by p.o.. Pain is about the same. No significant change. No other complaint. Nausea has been worse. Now having persistent hiccups. Exam Vital Signs (past 8 hours): Vital Signs - 8 hr 08/20/17 04:20 Temperature 97.4 F L Pulse Rate 95 H Respiratory Rate 18 Blood Pressure 118/83 H Pulse Oximetry 96 Pulse Oximetry 96 Oxygen Delivery Method Room Air Narrative Exam Narrative: Alert elderly male in no acute distress looking older than stated age. Lungs are clear. Heart regular rate and rhythm. Abdomen is mildly distended with positive fluid wave but not tense. Extremities without cyanosis clubbing edema Objective Labs Result Diagrams: 08/20/17 05:25 08/20/17 05:25 Labs: Laboratory Results - last 24 hr 08/20/17 08/20/17 05:25 05:25 WBC 11.9 H RBC 4.22 L Hgb 13.5 Hct 39.7 L MCV 93.9 MCH 31.9 MCHC 33.9 RDW 20.7 H Plt Count 376 Neut % (Auto) 91.0 H Lymph % (Auto) 4.2 L [place] % (Auto) 4.4 Eos % (Auto) 0.1 L Baso % (Auto) 0.3 Neut # (Auto) 96728 H RBC Morphology Not Reportable Poikilocytosis 1+ H Anisocytosis 1+ H [place] Cells 1+ H Acanthocytes (Spur) 1+ Sodium 121 L Potassium 6.0 H Chloride 91 L Carbon Dioxide 21 L BUN 40 H Creatinine 2.00 H Estimated GFR 34.0 L BUN/Creatinine Ratio 20.0 Glucose 102 Calcium 8.3 L Assessment & Plan Plan: Assessment/Plan Narrative: Hyperkalemia. Improved but still elevated. Will repeat Kayexalate and re-evaluate. Abdominal pain probably combination of metastatic cancer plus fluid issues. Ultrasound was not ordered yesterday. Ordered today. Will consider fluid released depending on result. Long discussion with about that since the last time did not really give him complete resolution for more than a few hours it is worth trying but I do not think it is going to fix issue. I think this is more related to his cancer but will see how things go. Dehydration. Very complicated. Clearly we are behind on fluids. I do not know how much of this is 3rd spacing but will aggressively hydrate today. We certainly do not appear to be getting a respiratory issue but it is very complicated at this point and will need to add addressed. Metastatic renal cell cancer. Clearly in stage. I do not think we are going to fix most of these issues. Not a medical issue here available. I think we are probably terminal and very close to that. I discussed this with his . She is not ready to hear all of this at this time. We will elected for discussion with hospice. Will aggressively try to solve some of his issues right now but I do not know of her going to make this better. I am not sure he will make it out of the hospitalization. understands my concerns. Questions were answered. Hyponatremia. Slightly worse. Will need to watch. Will go to normal saline. Stable. Renal failure. Complicated situation. We will aggressively manage fluids today but I think we are probably having a combination of issues which none are good. We will see what happens and re-evaluate tomorrow. GI prophylaxis. I do not think it needed at this time but will watch DVT prophylaxis on treatment. Code status. DNR. Disposition. I think this really needs to be approached with end of life care. is not ready completely for that decision but we discussed we will aggressively ago after issues today and will talk to hospice and have them consult. I really think this is really not a good situation and will be approaching an issue. We will follow. understands. Quality VTE Deep Vein Thrombosis/Pulmonary Embolism Present on Admission: No
--- NOTE | 2017-08-20 08:40 | P.PN_ITS ---
Subjective Date Patient Seen: 08/20/17 Time Patient Seen: 08:33 Interval history: Overall patient feeling maybe slightly worse. Was unable to take much by p.o.. Pain is about the same. No significant change. No other complaint. Nausea has been worse. Now having persistent hiccups. Exam Vital Signs (past 8 hours): Vital Signs - 8 hr 3 08/20/17 04:20 Temperature 97.4 F L Pulse Rate 95 H Respiratory Rate 18 Blood Pressure 118/83 H Pulse Oximetry 96 Pulse Oximetry 96 Oxygen Delivery Method Room Air Narrative Exam Narrative: Alert elderly male in no acute distress looking older than stated age. Lungs are clear. Heart regular rate and rhythm. Abdomen is mildly distended with positive fluid wave but not tense. Extremities without cyanosis clubbing edema Objective Labs Result Diagrams: 08/20/17 05:25 08/20/17 05:25 Labs: Laboratory Results - last 24 hr 08/20/17 08/20/17 05:25 05:25 WBC 11.9 H RBC 4.22 L Hgb 13.5 Hct 39.7 L MCV 93.9 MCH 31.9 MCHC 33.9 RDW 20.7 H Plt Count 376 Neut % (Auto) 91.0 H Lymph % (Auto) 4.2 L [place] % (Auto) 4.4 Eos % (Auto) 0.1 L Baso % (Auto) 0.3 Neut # (Auto) 60041 H RBC Morphology Not Reportable Poikilocytosis 1+ H Anisocytosis 1+ H [place] Cells 1+ H Acanthocytes (Spur) 1+ Sodium 121 L Potassium 6.0 H Chloride 91 L Carbon Dioxide 21 L BUN 40 H Creatinine 2.00 H Estimated GFR 34.0 L BUN/Creatinine Ratio 20.0 Glucose 102 Calcium 8.3 L Assessment & Plan Plan: Assessment/Plan Narrative: Hyperkalemia. Improved but still elevated. Will repeat Kayexalate and re- evaluate. Abdominal pain probably combination of metastatic cancer plus fluid issues. Ultrasound was not ordered yesterday. Ordered today. Will consider fluid released depending on result. Long discussion with about that since the last time did not really give him complete resolution for more than a few hours it is worth trying but I do not think it is going to fix issue. I think this is more related to his cancer but will see how things go. Dehydration. Very complicated. Clearly we are behind on fluids. I do not know how much of this is 3rd spacing but will aggressively hydrate today. We certainly do not appear to be getting a respiratory issue but it is very complicated at this point and will need to add addressed. Metastatic renal cell cancer. Clearly in stage. I do not think we are going to fix most of these issues. Not a medical issue here available. I think we are probably terminal and very close to that. I discussed this with his . She is not ready to hear all of this at this time. We will elected for discussion with hospice. Will aggressively try to solve some of his issues right now but I do not know of her going to make this better. I am not sure he will make it out of the hospitalization. understands my concerns. Questions were answered. Hyponatremia. Slightly worse. Will need to watch. Will go to normal saline. Stable. Renal failure. Complicated situation. We will aggressively manage fluids today but I think we are probably having a combination of issues which none are good. We will see what happens and re-evaluate tomorrow. GI prophylaxis. I do not think it needed at this time but will watch DVT prophylaxis on treatment. Code status. DNR. Disposition. I think this really needs to be approached with end of life care. is not ready completely for that decision but we discussed we will aggressively ago after issues today and will talk to hospice and have them consult. I really think this is really not a good situation and will be approaching an issue. We will follow. understands. Quality VTE Deep Vein Thrombosis/Pulmonary Embolism Present on Admission: No
[2017-08-20] MEDS: SODIUM CHLORIDE 0.9% 1,000 ML 150 ML IV ×2 (09:27→14:55)
[2017-08-20] MEDS: METOCLOPRAMIDE 10 MG/2 ML INJ IV ×2 (09:27→19:24)
--- NOTE | 2017-08-20 09:35 | DI.US.S_ITS ---
PROCEDURE: US PARACENTESIS INDICATIONS: ascites drainage TECHNIQUE: The indications, alternatives, benefits, risks, and complications of the procedure were explained to the patient. Written informed consent was obtained and placed in the chart. The abdomen and pelvis were examined sonographically, and an appropriate site was chosen for paracentesis. The skin was prepared and draped in the usual sterile fashion, and 1% lidocaine was infiltrated from the skin down through the peritoneal surface. A 19-gauge catheter-covered needle was then introduced into the peritoneal space, the catheter was advanced and the needle was withdrawn, and thereafter peritoneal fluid was withdrawn. The catheter was then removed and a dressing was applied. The fluid was discarded if the clinician did not order diagnostic testing of the fluid. COMPARISON: [facility], , PARACENTESIS, 08/14/2017, 10:58. FINDINGS: Access site: Midline low pelvis Needle: One-Step centesis catheter with introducer needle. Fluid volume and description: Serous, 5600 cc. Fluid sent for diagnostic testing: As requested. Medications: 1% lidocaine for local anaesthesia. Complications: None. IMPRESSION: Successful ultrasound-guided paracentesis. Dictated by: Mckinley Pal M.D. on 08/20/2017 at 13:22 Approved by: Mckinley Pal M.D. on 08/20/2017 at 13:23
--- NOTE | 2017-08-20 11:13 | CM.DPC ---
Addendum entered by Yolanda Robert LPN 08/20/17 15:25: Liberty's onc EXPLOSIVE ORDNANCE TECHNICIAN visit is noted and HNW Angela is updated via fax. Met now with Linda (pt currently heavily medicated post a procedure). She confirms need for notary and agreed to have one sent from [facility] tomorrow morning when pt again is expected to be alert. Discussed POC going forward. She notes her appreciation that staff is giving her time and space to formulate best plan for her . Will also provide POLST form tomorrow. Linda says she has had discussions with her partner for a long time re his wishes and desires and very much wants to advocate for him as best she can. She says her son in law, Lewis, is a AIRLINE RADIO OPERATOR in the ER and will be of great help when pt returns home. Original Note: Addendum entered by Yolanda Robert LPN 08/20/17 11:30: Received a call back now from Linda. She is at home, says she has rethought everything and I just cannot do this today. It's his birthday. Offered to set visit up for tomorrow and she said I just can't do it. I need to think about this. She says she knows that Dr. Navarro says her is declining rapidly.. HNW Gregory is updated and will let Susan know. She will keep referral information. P: will check in again tomorrow to offer support and assist. will alert onc pediatric social worker to above and anticipate oncology team will continue the discussion re treatment options that best support pt's quality of life and goals of care. Original Note: DCP: continued: Spoke with Dr. Navarro this morning after he saw pt and his Linda. He states desire for aggressive treatment continues but that both are open to a Hospice info visit. Met then with Linda and pt. Both confirm agreeable to same. Linda notes He used to have good days along with the bad days, lately all of the days have been bad (in terms of his symptoms). Discussed specifics of the infor visit and this has now been set up for 1500 today in pt's room with pt and Linda. Susan from [facility] has a call into Linda's cell: [phone] to confirm time.
--- NOTE | 2017-08-20 13:34 | ONC.NAV ---
Description: Care Coordination, Coping Support Activity: WHITEWATER RAFTING GUIDE met with pt and spouse to check-in re: coping and discharge planning needs. Pt was found to be alert and able to engage in this discussion. His SO, Linda, states that they are talking about planning needs, such as family that need to come and visit, going home from the hospital, hospice and adjusting emotionally to all of this very overwhelming information. Linda shared that she has delayed meeting with hospice only for a few days, that her and pt needed this time, today, to focus on being together-it's his birthday. WHITEWATER RAFTING GUIDE brought up a Chemo Quilt for pt, and offered some teaching re: the need to complete the Healthcare Durable Power of Bench Scientist form. Linda stated that she does have it with her, and now that pt is alert and oriented, she wants to complete it today. WHITEWATER RAFTING GUIDE explained that the city planner in care management that is working with them can arrange for a notary to come and sign the document along with pt. Also, informed pt/SO that we have scheduled pt with Dr. Mendiola in our clinic this coming at 3:30pm. If pt is still inpt, then we can arrange for Dr. Mendiola to come and see him on the floor. No other needs identified at this time. Updated care management.
--- NOTE | 2017-08-20 14:22 | PC.NURSE ---
spoke with pt's about pt's condition and answered questions regarding pt's care. They are hoping to have some more time together and want him to be lucid. Explained that some of the medications, especially thorazine, are sedating. Will hold off on that one unless pt needs or requests med.
[2017-08-21] VITALS (9 sets, daily range): BP systolic 80–110; BP diastolic 51–70; PULSE 89–101; RESP 13–19; TEMP 36.4–37.3; O2SAT 93–96
--- NOTE | 2017-08-21 | DI.US.S_ITS ---
PROCEDURE: US PARACENTESIS INDICATIONS: 62-year-old male with recurrent malignant ascites from renal cell carcinoma. TECHNIQUE: The indications, alternatives, benefits, risks, and complications of the procedure were explained to the patient. Written informed consent was obtained and placed in the chart. The abdomen and pelvis were examined sonographically, and an appropriate site was chosen for paracentesis. The skin was prepared and draped in the usual sterile fashion, and 1% lidocaine was infiltrated from the skin down through the peritoneal surface. A 19-gauge catheter-covered needle was then introduced into the peritoneal space, the catheter was advanced and the needle was withdrawn, and thereafter peritoneal fluid was withdrawn. The catheter was then removed and a dressing was applied. The fluid was discarded if the clinician did not order diagnostic testing of the fluid. COMPARISON: [facility], PARACENTESIS, 08/20/2017, 11:48. [facility], PARACENTESIS, 08/14/2017, 10:58. FINDINGS: Access site: Midline infraumbilical abdominal wall. Needle: One-Step centesis catheter with introducer needle. Fluid volume and description: 5600 mL of serosanguineous fluid. Fluid sent for diagnostic testing: No. Medications: 1% lidocaine for local anaesthesia. Complications: None. IMPRESSION: Successful ultrasound-guided repeat therapeutic paracentesis. Dictated by: Luis E Simon M.D. on 08/21/2017 at 15:36 Approved by: Luis E Simon M.D. on 08/21/2017 at 15:37
[2017-08-21] MEDS: LORazepam 2 MG/ML SYRINGE 1 MG IV ×5 (02:38→22:38)
--- NOTE | 2017-08-21 03:00 | PC.NURSE ---
Patient has been asleep since start of shift. Now awake and is alert and oriented but [place]. Respirations are shallow with clear breath sounds and RA sat of 94%. HRR; on telemetry and was SR at 0000 reading. When asked admits to feeling nauseated; medicated with Ativan. BT present; abdomen is distended with ascites. Patient does complain of sharp pain across mid abdomen and rates severity as 3/10; encouraged to use CARDROOM HAND which he states does help. Indwelling catheter is patent; urine is dark yara and has been having poor UOP of which MD is aware. Is able to turn self in bed. Fall risk score is high and bed alarm is activated. Spouse rooming in.
[2017-08-21] MEDS: HYDROMORPHONE PCA 6 MG/30 ML PCA.VIAL IV ×3 (05:42→23:31)
[2017-08-21 05:54] LABS: Blood Urea Nitrogen 46 mg/dL (9-20); Calcium 7.9 mg/dL (8.4-10.2); Carbon Dioxide 17 mmol/L (22-32); Chloride 94 mmol/L (98-107); Glucose 88 mg/dL (80-110); HEMOLYSIS < 15 (0-50)
[2017-08-21 05:55] LABS: Potassium 6.1 mmol/L (3.4-5.1); Sodium 118 mmol/L (137-145)
--- NOTE | 2017-08-21 08:14 | CM.DPNOTE ---
Addendum entered by Yolanda Robert LPN 08/21/17 15:08: POA paperwork completed and notarized. Original and copies to Linda. She requested a copy be faxed to [facility] (done). Copy to Red Folder/chart and copy faxed to [facility]/Med Records and he has scanned into EMR. Have had several discussions with Dr. Quintanilla and KJ Thompson. Pt is declining. Continues nausea, emesis. Symptom management continues. Original Note: DCP: continued: Met with pt and Linda this morning re POA. Pt is very alert today and will be ready to sign needed document at 0900. [facility]a, Med Rec, will be here at that time. POLST form also provided to Linda and pt. Dr. Quintanilla/PCP will see pt today. Per onc SAP BPC ARCHITECT Liberty Mendiola will see pt in the hospital tomorrow if he is still here, otherwise, an outpt appt is scheduled at 1530 at the [facility] info visit remains on hold at his time.
[2017-08-21] MEDS: SODIUM CHLORIDE 0.9% 1,000 ML 125 ML IV ×2 (10:21→20:48)
[2017-08-21] MEDS: ENOXAPARIN 40 MG/0.4 ML SYRINGE SUBCUT (10:21)
[2017-08-21] MEDS: SODIUM CHLORIDE 0.9% 500 ML IV (12:23)
--- NOTE | 2017-08-21 13:31 | PC.NURSE ---
notified by BEHAVIOR CLINICIAN that pt's BP was 76/54. Rechecked BP and was 81/51. Notified MD and order obtained for 500 ml NS bolus over 1 hr and to d/c tele. Clarified that pt is indeed DNR and if pressure continues to drop, no interventions per pt's wishes. will continue to monitor.
--- NOTE | 2017-08-21 13:48 | PM.PN.1 ---
Subjective Date Patient Seen: 08/21/17 Time Patient Seen: 13:49 Interval history: Patient extremely weak and emaciated with fairly dramatic recurrence of his peritoneal effusion ascites. He had an the night where he is able to rest after removal yesterday of 5 and 0.5 L of ascites fluid. Was a not bothered by nausea hiccuping or undue pain. However as the day goes blood pressure is low and tried to maintain this with fluid because I think he is just secreting so much pain to his abdomen. And now is beginning to have pain again with nausea and seems as though he might have as much fluid as he had an ear yesterday will have another tap today talk to surgery about putting a drain port and so we can do that for comfort measures although the patient's low blood pressure but renal function and inability to keep fluid and it is appropriate compartments I fear patient does not have very long at this point. Exam Vital Signs (past 8 hours): Vital Signs - 8 hr 08/21/17 05:53 08/21/17 07:40 08/21/17 11:35 Temperature 99.1 F 98.8 F 98.4 F Pulse Rate 99 H 101 H 90 Respiratory Rate 18 17 16 Blood Pressure 99/61 100/59 L 80/51 L Pulse Oximetry 94 93 93 Pulse Oximetry 93 Oxygen Delivery Method Room Air Oxygen Flow Rate 0 Narrative Exam Narrative: Patient profoundly weak dry slightly jaundiced and flattened affect barely able to hold his head up when sitting PERRLA sclerae anicteric Neck without mass a very May she did Chest shows clear lungs with decreased diaphragmatic excursion Cardio shows regular rate and rhythm without murmur or S3 Abdomen shows significant distention tenderness decreased breath sounds and accumulation of lots of ascites Back is bony no CVA area pain Skin shows jaundice Diffuse weakness throughout not focal speech is clear cognitive seems clear Extremities: Extremely emaciated and weak and Objective Labs Result Diagrams: 08/20/17 05:25 08/21/17 05:30 Labs: Laboratory Results - last 24 hr 08/21/17 05:30 Sodium 118 L* Potassium 6.1 H Chloride 94 L Carbon Dioxide 17 L BUN 46 H Creatinine 2.00 H Estimated GFR 34.0 L BUN/Creatinine Ratio 23.0 H Glucose 88 Calcium 7.9 L Assessment & Plan Plan: Assessment/Plan Narrative: Assessment 1. Metastatic right renal cell carcinoma with diffuse peritoneal implants and massive peritoneal effusions and ascites. Has been tapped from providing very transient comfort for a few hours when he did that again for comfort measures. Con contemplating at this point hospice consult. Their family is awaiting discussion with technology methodology consultant tomorrow and if he has no further things to offer I think they will probably opt for hospice with the hope of periodic peritoneal taps to help with comfort. This will dramatically strain his hydration status worsened his renal function and look for circumstances to extend for very long period of time Quality VTE Deep Vein Thrombosis/Pulmonary Embolism Present on Admission: No
[2017-08-21] MEDS: METOCLOPRAMIDE 10 MG/2 ML INJ IV (16:29)
--- NOTE | 2017-08-21 16:34 | PC.NURSE ---
Addendum entered by Kelli Mckeon R.N. 08/21/17 22:19: Pt c/o nausea, medicated with ativan 1mg IVP. Pt is emaciated, weakness, and showing some jaundice. 150mL yara urine from chapman this shift. Original Note: Addendum entered by Kelli Mckeon R.N. 08/21/17 21:53: Pt remains resting quietly, but intermittently reports nausea, medicated with zofran; once 4mg syringe IVP, and one 8mg/50ML NS. Call light in reach, bed alarm on. Original Note: Wendy shift- Pt returned to room from parenthesis procedure by Dr. Wood, at 1545. Procedure pulled off 5.6L fluid, ABD flat, soft, non-tender, BT+, reports feels better, but remains some nausea. Medicated with Raglan 10mg IVP, and Lorazepam 1mg IVP. Pt is resting quietly in bed with eyes closed, , Joann is resting as well, on window couch/bed. Chapman patent and draining scant yara/orange urine. ARIELLE midline NS @ 125 infusing. Orders for systolic <80, 500mL bolus. Call light in reach and bed alarm on.
[2017-08-21] MEDS: ONDANSETRON 4 MG/2 ML INJ IV ×2 (19:05→22:40)
[2017-08-21] MEDS: ONDANSETRON 8 MG in SODIUM CHLORIDE 0.9% 50 ML 216 ML IV (20:51)
[2017-08-22] VITALS (9 sets, daily range): BP systolic 108–110; BP diastolic 52–72; PULSE 86–97; RESP 12–86; TEMP 36.1–37.1; O2SAT 95–98
[2017-08-22] MEDS: METOCLOPRAMIDE 10 MG/2 ML INJ IV ×3 (01:12→16:08)
[2017-08-22] MEDS: ONDANSETRON 8 MG in SODIUM CHLORIDE 0.9% 50 ML 216 ML IV (04:35)
--- NOTE | 2017-08-22 05:09 | PC.NURSE ---
Kennel Operator- Pt oriented to name, , Hospital, [facility], corrected to [facility]. States it's July into August cause it was my birthday. Rates 3/10 pressure across abd. FRAMING CARPENTER Dilaudid in place & pt using properly & states is effective. Had episode of nausea with no emesis & hiccups at 0115, Medicated with prn Reglan at that time. Thorazine prn offered & pt's Linda stated that pt became confused & pulling at tubes/lines. Plan for reglan right now. Upon reassessment, pt sleeping. At 0430, pt had 1 episode of small amount of emesis, approx 25mls of gastric-like fluid, prn zofran 8mg IVPB given with good effect. Pt had 1/2 glass of orange juice & 1/2 popsicle per his request. Melo insitu draining clear yara urine. Refused SONDRA's stockings for the night. O2 95% on RA, No respiratory distress noted. High fall risk precautions in place, bed alarm on, call light within reach, pt's anirudh Mckeon stayed throughout the night.
[2017-08-22] MEDS: SODIUM CHLORIDE 0.9% 1,000 ML 125 ML IV (05:47)
[2017-08-22] MEDS: HYDROMORPHONE PCA 6 MG/30 ML PCA.VIAL IV ×3 (05:49→21:20)
[2017-08-22 05:50] LABS: Add Manual Diff / Slide Review NO; Basophils Percent Auto 0.2 % (0-2); Eosinophils Percent Auto 0.1 % (2-4); Hematocrit 41.2 % (41-53); Hemoglobin 13.7 g/dL (13.5-17.5); Lymphocytes Percent Auto 4.4 % (25-40); Mean Corpuscular HGB Conc 33.3 % (30-36); Mean Corpuscular Hemoglobin 31.8 PG (26-34); Mean Corpuscular Volume 95.5 fL (80-100); Monocytes Percent Auto 4.3 % (3-14); Neutrophils Absolute Auto 10300 /uL (3000-5900); Platelet Count 367 X10^3/uL (150-400); Red Blood Cell Count 4.31 X10^6/uL (4.5-5.9); Red Cell Distribution Width 20.5 % (11.6-14.8); White Blood Cell Count 11.3 X10^3/uL (4.5-11.0)
[2017-08-22 05:57] LABS: Alanine Aminotransferase 25 IU/L (21-72); Albumin 2.1 g/dL (3.5-5.0); Alkaline Phosphatase 44 U/L (38-126); Aspartate Aminotransferase 28 IU/L (17-59); BUN Creatinine Ratio 21.7 (6-22); Bilirubin Total 0.6 mg/dL (0.2-1.3); Blood Urea Nitrogen 50 mg/dL (9-20); Calcium 7.7 mg/dL (8.4-10.2); Carbon Dioxide 19 mmol/L (22-32); Chloride 93 mmol/L (98-107); Globulin 2.1 g/dL (1.7-4.1); Glucose 108 mg/dL (80-110); HEMOLYSIS < 15 (0-50); Total Protein 4.2 g/dL (6.3-8.2)
[2017-08-22 06:04] LABS: Sodium 118 mmol/L (137-145)
[2017-08-22 06:05] LABS: Potassium 6.3 mmol/L (3.4-5.1)
[2017-08-22 06:35] LABS: Acanthocytes 1+; Anisocytosis 1+; Burr Cells 1+; Poikilocytosis 2+
[2017-08-22] MEDS: ENOXAPARIN 40 MG/0.4 ML SYRINGE SUBCUT (12:20)
[2017-08-22] MEDS: ONDANSETRON 4 MG/2 ML INJ IV ×2 (12:23→19:22)
[2017-08-22] MEDS: SODIUM CHLORIDE 0.9% 1,000 ML 150 ML IV (13:45)
--- NOTE | 2017-08-22 17:10 | P.CONONC_ITS ---
History of Present Illness - Data of Consult Patient: known to practice within the last 3 years Consult date: 08/22/17 Requesting Physician: Dr Qiuntanilla Primary Care Provider: Ehsan Quintanilla MD - Consult Narrative Reason for consult: Progressive metastatic papillary kidney cancer Narrative: Braulio Salinas is a 62 year old male whom I am seeing for the 1st time today her request of the hospital team and the patient's family. Previous records from Dr. Spears as well as management at [facility] reviewed. 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 There was also extensive para-aortic lymphadenopathy to the size of 11 cm of conglomerate as well as mediastinal adenopathy and supraclavicular lymph node involvement Status post left nephrectomy with caval thrombectomy, RP L and D and splenectomy on March 06, 2017 at [facility] this was a complex and extended surgery from which he had to recover 1st. He was then [facility] locally as well as at [facility] by Dr. Villar. Staging consistent with a T3b,N1,M1 He started systemic therapy with Sutent in May 2017. At that time I do not see any CT scans performed. His previous comparison CT scan is from February. He was started at the full standard dose 50 mg daily for 4 weeks on, 2 weeks off and has been in the middle of the 2nd cycle currently. He had a CT scan of chest abdomen and pelvis with contrast on July 25, 2017 which I personally reviewed showing evidence of disease progression compared to the February scan with increasing lymphadenopathy, localized fluid collection in the retroperitoneum and involvement of lymph nodes both in the abdomen and mediastinum and supraclavicular nodes. He proceeded with this 2nd cycle of Sutent. He has been admitted since August 13 with failure to thrive, abdominal pain, weight loss and significant distention of his abdomen. Repeat CT scan of August 13, 2017 of chest abdomen and pelvis. I personally reviewed that comparing it to the previous scan that was done just 19 days earlier. There is dramatic change in the interval with massive ascites and evidence of peritoneal carcinomatosis. There is also a pleural effusion He has had 3 paracentesis since then removing each time approximately 5 L. Lab studies show several abnormalities including severe hyponatremia with a sodium of 118, renal insufficiency with a creatinine around 2 with pre renal azotemia and a potassium of 6.3. His blood counts show no significant abnormality CC: Ehsan Quintanilla MD Patient reports pain?: Yes - Pain Details Pain Intensity: 3 Pain Scale Used: Numeric (1 - 10) Home Medications and Allergies Home Medications Medication Instructions Recorded Confirmed Type sunitinib [Sutent] 50 mg PO DIRECTED #0 05/30/17 08/19/17 History acetaminophen 500 mg PO Q4H PRN 08/13/17 08/19/17 History sennosides 1 tab PO PRN PRN 08/13/17 08/19/17 History lorazepam 1 mg PO TID #30 tab 08/15/17 08/19/17 Rx metoclopramide HCl [Reglan] 10 mg PO Q6H #30 tab 08/15/17 08/19/17 Rx ondansetron 8 mg PO Q6HR 14 Days #30 tab 08/15/17 08/19/17 Rx oxycodone 10 mg PO Q4-6H PRN #30 tab 08/15/17 08/19/17 Rx Allergies Allergy/AdvReac Type Severity Reaction Status Date / Time No Known Drug Allergies Allergy Verified 07/11/17 14:08 Medical History - Medical, Surgical, Family History Medical History: Medical History (Last Updated 08/13/17 @ 19:13 by Ehsan Quintanilla MD) HTN (hypertension) (Acute) Renal cancer (Acute) Anemia Ascites, malignant Depression - Social History Smoking Status: Never smoker Review of Systems - Patient Self-Reported Symptoms SR Constitution: Fatigue/Malaise, Night Sweats SR Gastrointestinal issues: Abdominal pain, Change in bowel pattern, Constipation, Nausea, Vomiting Constitutional: weight loss, poor state of general health, decreased activity level Exam Vital signs: Last Vital Signs Temp 97.0 F L 08/22/17 15:20 Pulse 86 08/22/17 15:20 Resp 86 H 08/22/17 15:20 BP 110/72 08/22/17 15:20 Pulse Ox 97 08/22/17 15:20 Narrative: Patient appears very weak with a ECOG performance status of PS 3. His upper body appears atrophic with signs of cachexia and at the same time a distended abdomen - Constitutional positive moderate distress, positive cachectic - Routine Chest/Breast/Axilla Exam Axillae: Absent: lymphadenopathy - Routine Respiratory Exam Present: Clear to auscultation bilaterally - Routine Cardiovascular Exam Present: RRR. Absent: murmur - Routine Abdominal Exam Present: distended, firm Bowel sounds abdominal exam standard: hypoactive Palpation/Percussion: Present: dullness to percussion - Routine Extremities Exam Absent: edema - Routine Skin Exam Present: intact, dry - Routine Neurological Exam Present: alert, oriented X3 - Routine Psychiatric Exam Present: depressed Results - Labs 08/22/17 05:40 08/22/17 05:40 Laboratory Last Values WBC 11.3 X10^3/uL (4.5-11.0) H 08/22/17 05:40 RBC 4.31 X10^6/uL (4.5-5.9) L 08/22/17 05:40 Hgb 13.7 g/dL (13.5-17.5) 08/22/17 05:40 Hct 41.2 % (41-53) 08/22/17 05:40 MCV 95.5 fL (80-100) 08/22/17 05:40 MCH 31.8 PG (26-34) 08/22/17 05:40 MCHC 33.3 % (30-36) 08/22/17 05:40 RDW 20.5 % (11.6-14.8) H 08/22/17 05:40 Plt Count 367 X10^3/uL (150-400) 08/22/17 05:40 Neut % (Auto) 91.0 % (50-75) H 08/22/17 05:40 Lymph % (Auto) 4.4 % (25-40) L 08/22/17 05:40 [place] % (Auto) 4.3 % (3-14) 08/22/17 05:40 Eos % (Auto) 0.1 % (2-4) L 08/22/17 05:40 Baso % (Auto) 0.2 % (0-2) 08/22/17 05:40 Neut # (Auto) 03857 /uL (0879-8602) H 08/22/17 05:40 RBC Morphology Not Reportable 08/22/17 05:40 Poikilocytosis 2+ H 08/22/17 05:40 Anisocytosis 1+ H 08/22/17 05:40 Target Cells 1+ H 08/18/17 20:50 [place] Cells 1+ H 08/22/17 05:40 Acanthocytes (Spur) 1+ 08/22/17 05:40 Schistocytes 1+ H 08/19/17 05:23 PT 10.6 SECONDS (10.1-12.7) 08/18/17 20:50 INR 1.0 (0.9-1.3) 08/18/17 20:50 Sodium 118 mmol/L (137-145) L* 08/22/17 05:40 Potassium 6.3 mmol/L (3.4-5.1) H* 08/22/17 05:40 Chloride 93 mmol/L (98-107) L 08/22/17 05:40 Carbon Dioxide 19 mmol/L (22-32) L 08/22/17 05:40 BUN 50 mg/dL (9-20) H 08/22/17 05:40 Creatinine 2.30 mg/dL (0.66-1.25) H 08/22/17 05:40 Estimated GFR 29.0 mL/min (>60) L 08/22/17 05:40 BUN/Creatinine Ratio 21.7 (6-22) 08/22/17 05:40 Glucose 108 mg/dL (80-110) 08/22/17 05:40 Calcium 7.7 mg/dL (8.4-10.2) L 08/22/17 05:40 Total Bilirubin 0.6 mg/dL (0.2-1.3) 08/22/17 05:40 AST 28 IU/L (17-59) 08/22/17 05:40 ALT 25 IU/L (21-72) 08/22/17 05:40 Alkaline Phosphatase 44 U/L (38-126) 08/22/17 05:40 Total Protein 4.2 g/dL (6.3-8.2) L 08/22/17 05:40 Albumin 2.1 g/dL (3.5-5.0) L 08/22/17 05:40 Globulin 2.1 g/dL (1.7-4.1) 08/22/17 05:40 Albumin/Globulin Ratio 1.0 (1.0-2.8) 08/22/17 05:40 Lipase 43 U/L (23-300) 08/18/17 20:50 - Imaging Additional studies: Procedures Drainage of Peritoneal Cavity, Percutaneous Approach (08/19/17) Assessment and Plan (1) Malignant neoplasm of kidney excluding renal pelvis Current visit: No Status: Acute 08/22/17 17:16 61-year-old unfortunate gentleman with history of 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 I have reviewed the notes from Dr. Spears as well as [facility] and his surgery as summarized above. I also reviewed personally the actual images from his CT scan of July 25 in comparison to August 13, 2017. I had a good conversation with the patient and his reviewing the findings suggesting that unfortunately after his major operation in February 2017 he has had continuous progression of disease systemically. He has been treated with Sutent oral tyrosine kinase inhibitor for the past 2 months Over the past 3-4 weeks he has shown dramatic deterioration of his functional status and his CT scan shows similarly at dramatic change in just 19 days difference between the 2 CT scans with evidence of massive ascites that is reaccumulating rapidly and peritoneal carcinomatosis. He is clearly refractory to Sutent. Papillary carcinoma of the kidney at times are much more aggressive than clear cell carcinomas which is the more common type. Given his poor clinical status and the tumor biology we are seeing in this past 4 weeks, I do not believe that offering him any second-line chemotherapy or oral everolimus will have any meaningful impact on his overall survival. Immunotherapy would require a protracted period of time to induce any immune response which may or may not occur. With patient having such an aggressive and rapid tumor progression, makes him not suitable candidate for immunotherapy. His current performance status is ECOG PS 3 with severe malnutrition and cachexia, with a bed-bound patient. I recommended to transition to comfort care with hospice and the patient and his are agreeable. Hospice arrangements should be made that before discharge In regard to the management of malignant ascites we discussed the palliative paracentesis versus surgical placement of a peritoneal catheter for home drainage. I believe that the patient's prognosis is very poor and I doubt that he would have the time to benefit from a surgically placed peritoneal catheter. I discussed that with Dr. Wood of surgery who will review this with the patient as well and see what the patient prefers in this regard. (2) Malignant ascites Current visit: Yes Status: Acute - Time Spent with Patient Approximately 1 hr and 10 min were spent in counseling and coordination of care
--- NOTE | 2017-08-22 18:38 | P.CONS_ITS ---
History of Present Illness Date Patient Seen: 08/22/17 Time Patient Seen: 18:24 Chief complaint: fluid build up in stomach,vomitting Reason for consult: Ascites Requesting provider: Ehsan Quintanilla Narrative: The patient is a gentleman with metastatic renal cancer who has had rapid progression over the last few weeks. He has developed severe ascites and has had to be tapped multiple times for comfort. Even when tapped his pain is not relieved. He also has nausea and vomiting. Patient was actually seen initially yesterday and I completed the consult today after he was seen by the medical oncologist and I had a discussion with the medical oncologist. I then return to talk to the patient. He has had huge operation to remove his left kidney and spleen. He was found to have positive lymph nodes when that was performed. He has received treatment bed it seems to be failing at this time. I was asked to consider placing a PleurX catheter were similar catheter to draw off his ascites so that he would have to go to radiology periodically PFSH Medical History HTN (hypertension) (Acute) Renal cancer (Acute) Malignant cachexia (Acute) History of nephrectomy, unilateral (Resolved) Anemia (Acute) Ascites, malignant (Acute) Depression (Acute) Surgical History History of splenectomy (Resolved) Family History Other Cardiac disease Social History household members: spouse Smoking Status: Never smoker alcohol intake: never Meds Home Medications Medication Instructions Recorded Confirmed Type sunitinib [Sutent] 50 mg PO DIRECTED #0 05/30/17 08/19/17 History acetaminophen 500 mg PO Q4H PRN 08/13/17 08/19/17 History sennosides 1 tab PO PRN PRN 08/13/17 08/19/17 History lorazepam 1 mg PO TID #30 tab 08/15/17 08/19/17 Rx metoclopramide HCl [Reglan] 10 mg PO Q6H #30 tab 08/15/17 08/19/17 Rx ondansetron 8 mg PO Q6HR 14 Days #30 tab 08/15/17 08/19/17 Rx oxycodone 10 mg PO Q4-6H PRN #30 tab 08/15/17 08/19/17 Rx Allergies Allergy/AdvReac Type Severity Reaction Status Date / Time No Known Drug Allergies Allergy Verified 07/11/17 14:08 Review of Systems Review of Systems Patient is generally weak. His vision is okay. No pain is eyes. Having little trouble swallowing at times. No tooth aches. Does not have a cough at this time no sputum production. Has abdominal pain. The pain is kind of vague and diffuse. No black or bloody bowel movements. No chest pain or heart problems he is aware of. No seizures or blackouts. He is suffering from some anxiety and depression over the progression of his disease. No spontaneous bleeding. Does bruise easily Exam Vital Signs (past 8 hours): Vital Signs - 8 hr 3 08/22/17 13:00 08/22/17 15:00 08/22/17 15:20 Temperature 97.0 F L Pulse Rate 88 86 Respiratory Rate 17 86 H Blood Pressure 110/72 Pulse Oximetry 96 97 Pulse Oximetry 97 Oxygen Delivery Method Room Air Oxygen Flow Rate 0 Narrative Exam Narrative: Very cachectic gentleman. Eyes protrude bony prominences everywhere clearly has wasting of his musculature and loss of body fat. Eyes are nonicteric. There are no nodes in the neck or supraclavicular areas. Trachea is midline and mobile. I do not appreciate any masses in the neck or thyroid. There is no tenderness of the thyroid. Lungs are clear to auscultation without rales or rhonchi. Hyper resonant percussion. Heart regular rate and rhythm without murmur gallop. No heave physical therapy attendant thrill. His abdomen is distended and has a fluid wave. There are no ventral hernias. He has a subcostal bilateral chevron incision from his removal of the diseased kidney and adjacent spleen. The patient was pretty alert both times I saw him. At times has a vacant stare. At times is a little animated. I would says is affect is generally appropriate. Oriented. Objective Labs Result Diagrams: 08/22/17 05:40 08/22/17 05:40 Labs: Laboratory Results - last 24 hr 08/22/17 08/22/17 05:40 05:40 WBC 11.3 H RBC 4.31 L Hgb 13.7 Hct 41.2 MCV 95.5 MCH 31.8 MCHC 33.3 RDW 20.5 H Plt Count 367 Neut % (Auto) 91.0 H Lymph % (Auto) 4.4 L [place] % (Auto) 4.3 Eos % (Auto) 0.1 L Baso % (Auto) 0.2 Neut # (Auto) 09697 H RBC Morphology Not Reportable Poikilocytosis 2+ H Anisocytosis 1+ H [place] Cells 1+ H Acanthocytes (Spur) 1+ Sodium 118 L* Potassium 6.3 H* Chloride 93 L Carbon Dioxide 19 L BUN 50 H Creatinine 2.30 H Estimated GFR 29.0 L BUN/Creatinine Ratio 21.7 Glucose 108 Calcium 7.7 L Total Bilirubin 0.6 AST 28 ALT 25 Alkaline Phosphatase 44 Total Protein 4.2 L Albumin 2.1 L Globulin 2.1 Albumin/Globulin Ratio 1.0 Assessment & Plan Plan: Assessment/Plan Narrative: I spent a lot of time talking to them yesterday and came back today after Dr. Mendiola had seen the patient. There is really no chemotherapy that is felt to benefit him and he is clearly dying. I had told them yesterday and again today that we could certainly placed the 2 but it would carry its own pain associated with the procedure and may be a very limited benefit given the course of his disease. After the conversation with the oncologist today they have decided to hold on placement of a peritoneal catheter. Hospice will be got involved as and at discharge hopefully all that will be arranged. I think comfort care is the most appropriate thing here. His BUN and creatinine are rising presently his creatinine is 2.3. His electrolytes are grossly abnormal with a sodium of 118 which will also probably affect his mentation. His potassium is at 6.3. This may well lead to cardiac dysrhythmias if he continues upward. I suspect his survival could be measured in days or possibly weeks.
--- NOTE | 2017-08-22 19:54 | PC.NURSE ---
chlorpromazine Med DC'd per pt's who states this medication makes pt loopy
[2017-08-22] MEDS: LORazepam 2 MG/ML SYRINGE 1 MG IV (20:12)
[2017-08-23] VITALS (9 sets, daily range): BP systolic 90–109; BP diastolic 53–72; PULSE 87–93; RESP 16–19; TEMP 36.3–36.8; O2SAT 93–99
[2017-08-23] MEDS: METOCLOPRAMIDE 10 MG/2 ML INJ IV ×3 (02:14→17:09)
[2017-08-23] MEDS: ONDANSETRON 4 MG/2 ML INJ IV ×2 (04:27→11:18)
[2017-08-23] MEDS: SODIUM CHLORIDE 0.9% 1,000 ML 150 ML IV ×3 (04:28→19:35)
--- NOTE | 2017-08-23 04:52 | PC.NURSE ---
NOC Note: Pt reported nausea and had a 50cc emesis at 0215, PRN Reglan was given and at 0430 pt again was nauseated, PRN Zofran given. Pt reports that both medication were helpful for a short while. IV fluids running as ordered with minimal urine output so far this shift. BT x4 and hypoactive. ABD is distended. Pt denies SOB but fine crackles noted during assessment and O2 96% RA. Pt uisng WAREHOUSE WORKER for pain control with good results at this time. pt is using the call light and making needs known.
[2017-08-23 05:22] LABS: Add Manual Diff / Slide Review NO; Basophils Percent Auto 0.1 % (0-2); Eosinophils Percent Auto 0.1 % (2-4); Hemoglobin 12.7 g/dL (13.5-17.5); Mean Corpuscular HGB Conc 33.5 % (30-36); Mean Corpuscular Volume 95.6 fL (80-100); Monocytes Percent Auto 4.8 % (3-14); Neutrophils Absolute Auto 10300 /uL (3000-5900); Platelet Count 315 X10^3/uL (150-400); Red Blood Cell Count 3.97 X10^6/uL (4.5-5.9); Red Cell Distribution Width 20.4 % (11.6-14.8); White Blood Cell Count 11.1 X10^3/uL (4.5-11.0)
[2017-08-23 05:35] LABS: HEMOLYSIS < 15 (0-50)
[2017-08-23 05:36] LABS: Alanine Aminotransferase 25 IU/L (21-72); Albumin Globulin Ratio 0.9 (1.0-2.8); Alkaline Phosphatase 50 U/L (38-126); Aspartate Aminotransferase 27 IU/L (17-59); BUN Creatinine Ratio 23.6 (6-22); Bilirubin Total 0.5 mg/dL (0.2-1.3); Blood Urea Nitrogen 52 mg/dL (9-20); Calcium 7.6 mg/dL (8.4-10.2); Carbon Dioxide 16 mmol/L (22-32); Chloride 95 mmol/L (98-107); Estimated Glomerular Filt Rate 30.5 mL/min (>60); Globulin 2.3 g/dL (1.7-4.1); Glucose 97 mg/dL (80-110); Total Protein 4.3 g/dL (6.3-8.2)
[2017-08-23 05:41] LABS: Potassium 6.3 mmol/L (3.4-5.1); Sodium 119 mmol/L (137-145)
[2017-08-23] MEDS: HYDROMORPHONE PCA 6 MG/30 ML PCA.VIAL IV ×3 (06:03→21:45)
[2017-08-23] MEDS: LORazepam 2 MG/ML SYRINGE 1 MG IV ×4 (06:18→21:43)
[2017-08-23] MEDS: ENOXAPARIN 40 MG/0.4 ML SYRINGE SUBCUT (08:52)
--- NOTE | 2017-08-23 09:54 | CM.DPC ---
Per MD: family agreeable for hospice info visit today. [facility]: Angela able to arrive at 1030. Family and RN notified.
--- NOTE | 2017-08-23 10:00 | PC.NURSE ---
Addendum entered by Jasmin Beatty R.N. 08/23/17 13:23: GI - pt continues with nausea and freq small emesis, thin, brown fluid, oral care provided, repositioned comfort, notified pt increased freq episodes despite medications admin, no new orders now, may order paracentesis. Original Note: Addendum entered by Jasmin Beatty R.N. 08/23/17 11:58: GI - spouse req ativan now as pt fatigued after visitors and ongoing nausea, lying l side, given 1mg iv ativan. Original Note: Addendum entered by Jasmin Beatty R.N. 08/23/17 11:21: GI - pt upright, on r side with approx 50ml emesis, also asking for gilson milk, given 4mg iv zofran, would like to stay awake as there are several family members at bedside and take ativan later as it makes him fall asleep. Original Note: AM NOTE - pt awakened on his own, oriented, speech clear, skin tone is ashen, ongoing nausea and retching at times with small qty bile, discussed pain mgt with and privacy officer demand 0.2/10/6mg currently and added 0.1/mg contin, informed pt and spouse, bt are present, ascities, ra 98%, hr 84, given 10mg iv reglan, pt desired removal chapman due discomfort, 75ml conc urine present, balloon deflated and dc'd w/o difficulty.
--- NOTE | 2017-08-23 10:16 | PC.NURSE ---
AM NOTE - pt awakened when in, quite tearful and anxious, had bad dream during night and has a wimper and cry during conversation, states abd discomfort when she eats is 6 on scale 0/10, has poor appetite and will try bites, declines ensure at this time, given norco 5/325mg for pain mgt, sob with speech/activity, 3l 94%, with occassional congested cough, rt in tmt this am, phys therapy in and mobilized, to sink for adls then chair w/alarm set.
--- NOTE | 2017-08-23 13:23 | P.PN_ITS ---
Subjective Date Patient Seen: 08/22/17 Time Patient Seen: 08:00 Interval history: Patient has reaccumulated is is severely recurrence ascites which is malignant in nature from peritoneal implants of metastatic renal cell cancer. Patient is having severe nausea secondary to that with increasing pain that is difficult to control with either nausea medications or with available pain medicines he even IV. Continues to have poor renal function elevated potassium and low sodium. IV fluids helped maintain blood pressure but promptly secreting to the gut. Limited if any urine. Patient will be getting consultation from oncologist today about possibility of an any further options for treatment. Do not anticipate there will be any and this will be very bad shocking and difficult nose for them since this has progressed very quickly to a sexually terminal state. Hospice has been contacted and the family has chosen to hold off on that discussion until have a chance to discuss with Oncology which has not happened yet. Patient has severe nutritional deficit is secondary to his malignancy with severe wide ranging metastasis and the loss of fluid and nutrients into his ascites fluid at the rate of well over 5 L a day. Exam Vital Signs (past 8 hours): Vital Signs - 8 hr 3 08/23/17 08:00 08/23/17 09:59 08/23/17 12:00 Temperature 97.6 F 97.3 F L Pulse Rate 87 88 Respiratory Rate 16 18 Blood Pressure 103/70 109/72 Pulse Oximetry 98 98 99 Pulse Oximetry 99 Oxygen Delivery Method Room Air Oxygen Flow Rate 0 Narrative Exam Narrative: Severely ill cachectic emaciated gentleman in severe distress nausea and abdominal pain PE are are LA EOMs intact Neck without mass Lungs soun decreased breath sounds Heart without murmur faint heart sounds slightly rapid rate no edema Abdomen severely distended with ascites. Diffusely tender throughout. No bowel sounds. Neuro shows weakening and decreased mental clarity Extremities are emaciated very thin and very little muscle mass very cachectic Psych shows patient in grave mental state very very saddened and afraid that the imminent demise and of the arm feeling terrible for his spouse is going through this with him. Abdomen severely distended tight is a drum ascites collected very rapidly Objective Labs Result Diagrams: 08/23/17 05:12 08/23/17 05:12 Labs: Laboratory Results - last 24 hr 08/23/17 08/23/17 05:12 05:12 WBC 11.1 H RBC 3.97 L Hgb 12.7 L Hct 38.0 L MCV 95.6 MCH 32.0 MCHC 33.5 RDW 20.4 H Plt Count 315 Neut % (Auto) 92.0 H Lymph % (Auto) 3.0 L [place] % (Auto) 4.8 Eos % (Auto) 0.1 L Baso % (Auto) 0.1 Neut # (Auto) 79091 H Sodium 119 L* Potassium 6.3 H* Chloride 95 L Carbon Dioxide 16 L BUN 52 H Creatinine 2.20 H Estimated GFR 30.5 L BUN/Creatinine Ratio 23.6 H Glucose 97 Calcium 7.6 L Total Bilirubin 0.5 AST 27 ALT 25 Alkaline Phosphatase 50 Total Protein 4.3 L Albumin 2.0 L Globulin 2.3 Albumin/Globulin Ratio 0.9 L Assessment & Plan Plan: Assessment/Plan Narrative: Assessment 1. Severely progressive metastatic renal cell carcinoma papillary type with peritoneal implants leading to ascites accumulation so rapidly that we can't keep up with it. PE this is exhausting patient cardiovascularly nutritionally and emotionally as well as physically. He has had to be tapped almost daily to restore comfort and diminished nausea and help him be able to function during this difficult time. Maximum amount of ascites was removed each time at 5 L and reaccumulate stool point of discomfort and nausea returning within of a very few hours. Assessment 2. Nutritional deficit is entirely secondary to his metastatic and hypermetabolic state and IA along with inability due to the presence of ascites for him to take any nutrition through his gut and the terminal situation making it seem less likely that TPN would be reasonable option Assessment 3 hyperkalemia patient unable to take Kayexalate and no other meaningful way to reverse that at this time due to his ascites. Assessment 4. Hyponatremia again consistent with the massive amount of fluid that he is secreting into his abdomen an hourly basis completing fluid reserves and blocking his inability for any of his gut function to absorb by Nutrition. Assessment 5. Emotional look at test her feet for this patient and his spouse with this degree of terminal malignancy unfolding just over the last 4 days or so. They are practically holding onto every minute the other that they can and this is very understandable and hospice is hesitant to interfere when they are struggling for any minute bit of comfort or prolongation both breast since IV fluids to maintain his blood pressure and and comfort measures that might be more invasive then hospice would recommend. Quality VTE Deep Vein Thrombosis/Pulmonary Embolism Present on Admission: No
--- NOTE | 2017-08-23 13:43 | PM.PN.1 ---
Subjective Date Patient Seen: 08/23/17 Time Patient Seen: 13:43 Interval history: Patient continues to worsen today and has got recurrent and severe reaccumulation of ascites with retching be on control with any of her medications. Lengthy talk with oncology yesterday shows focal situation recommendation for hospice. Patient meeting with hospice today indicated that they were not quite ready for some of the things that go for that to be any help. with hospice like discontinuing IV fluids because they are clear sense that he could be gone in a matter of hours where that the case. Continues to have hyperkalemia and hyponatremia and inability to access nutrition. Oncology recommended against placing a portal tube in the abdomen to drain ascites this because he does not think it will be Exam Vital Signs (past 8 hours): Vital Signs - 8 hr 08/23/17 08:00 08/23/17 09:59 08/23/17 12:00 Temperature 97.6 F 97.3 F L Pulse Rate 87 88 Respiratory Rate 16 18 Blood Pressure 103/70 109/72 Pulse Oximetry 98 98 99 Pulse Oximetry 99 Oxygen Delivery Method Room Air Oxygen Flow Rate 0 Narrative Exam Narrative: Patient extreme distress unable to focus and retching and in severe pain. Pale action color severe distress becoming confused Lungs with very decreased breath sounds Heart with regular rate and rhythm Abdomen severely distended with ascites. Diffusely tender all over no bowel sounds present in all Back without significant lesion or skin breakdown Neuro shows fading level of consciousness and decreasing diff strength diffusely Psych shows patient as well as spouse to be severely emotionally devastated by the progression of this and the news and discussion with hospice. Objective Labs Result Diagrams: 08/23/17 05:12 08/23/17 05:12 Labs: Laboratory Results - last 24 hr 08/23/17 08/23/17 05:12 05:12 WBC 11.1 H RBC 3.97 L Hgb 12.7 L Hct 38.0 L MCV 95.6 MCH 32.0 MCHC 33.5 RDW 20.4 H Plt Count 315 Neut % (Auto) 92.0 H Lymph % (Auto) 3.0 L [place] % (Auto) 4.8 Eos % (Auto) 0.1 L Baso % (Auto) 0.1 Neut # (Auto) 64470 H Sodium 119 L* Potassium 6.3 H* Chloride 95 L Carbon Dioxide 16 L BUN 52 H Creatinine 2.20 H Estimated GFR 30.5 L BUN/Creatinine Ratio 23.6 H Glucose 97 Calcium 7.6 L Total Bilirubin 0.5 AST 27 ALT 25 Alkaline Phosphatase 50 Total Protein 4.3 L Albumin 2.0 L Globulin 2.3 Albumin/Globulin Ratio 0.9 L Assessment & Plan Plan: Assessment/Plan Narrative: Assessment 1. Patient with progressive terminal cancer with the severe metabolic dysfunction and nutritional deficit secondary to underlying cancer and recurrent ascites. Assessment to think patient is in and near and stayed and will not dose 5 with the out IV fluids and peritoneal drainage of ascites fluid more than a day or so. Assessment 3 and mostly devastated draw for him personal support as best I can Assessment for hyperkalemia and spite of giving him IV fluids and try to dilute I think this is per evidence of his worsening renal failure is making no urine Assessment 5 renal failure progressing of no fluid running through his kidneys did move very effectively at all. Assessment 6. Patient and spouse have a very difficult time coming to the point where hospice is fully acceptable are understandable for that Quality VTE Deep Vein Thrombosis/Pulmonary Embolism Present on Admission: No
--- NOTE | 2017-08-23 14:01 | DI.US.S_ITS ---
PROCEDURE: US PARACENTESIS INDICATIONS: PAIN; ASCITIES TECHNIQUE: The indications, alternatives, benefits, risks, and complications of the procedure were explained to the patient. Written informed consent was obtained and placed in the chart. The abdomen and pelvis were examined sonographically, and an appropriate site was chosen for paracentesis. The skin was prepared and draped in the usual sterile fashion, and 1% lidocaine was infiltrated from the skin down through the peritoneal surface. A 19-gauge catheter-covered needle was then introduced into the peritoneal space, the catheter was advanced and the needle was withdrawn, and thereafter peritoneal fluid was withdrawn. The catheter was then removed and a dressing was applied. The fluid was discarded if the clinician did not order diagnostic testing of the fluid. COMPARISON: [facility], , PARACENTESIS, 08/21/2017, 14:20. FINDINGS: Access site: Right paramedian anterior mid pelvis body wall Needle: One-Step centesis catheter with introducer needle. Fluid volume and description: 5000 cc, serous. Fluid sent for diagnostic testing: Not requested. Medications: 1% lidocaine for local anaesthesia. Complications: None. IMPRESSION: Successful ultrasound-guided paracentesis, 5000 cc serous fluid without patient complaint or complication. Dictated by: Mckinley Pal M.D. on 08/23/2017 at 16:48 Approved by: Mckinley Pal M.D. on 08/23/2017 at 16:49
[2017-08-23] MEDS: ONDANSETRON 8 MG in SODIUM CHLORIDE 0.9% 50 ML 216 ML IV ×2 (14:48→19:45)
--- NOTE | 2017-08-23 14:56 | CM.SWNOTE ---
Attempted to assist GEAR SETTER Chiqui today w/pt's POC/DCP while she was responding to a MH placement. Spoke w/Angela at [facility]; the info visit had been completed and SO Annette had asked if pt could DC home w/ IVF ? This GEAR SETTER wonders if pt/SO have had a thorough goals of care conversation? Notes indicate many physicians discussed prognosis w/pt yesterday (?) Angela was going to f/u w/Cassandra and MD Director at [facility] to review this pt's/SO's request and determine next steps. Consent forms were not signed. This GEAR SETTER spoke w/ RN Jasmin re above; pt having a hard day, extremely nauseous and uncomfortable. Jasmin feels pt and SO will need time to process information presented yesterday and may not be ready for Hospice/comfort measures only (allowing the natural decline process). Spoke w/GEAR SETTER Chiqui and Dr Quintanilla this afternoon re above. All agree that this is a difficult situation; pt is very uncomfortable today but pt and SO want pt to continue to be present, awake and responsive, even though he may be in constant discomfort. Dr Quintanilla feels if pt were transitioned to full comfort care he would likely not last 24-[address] Quintanilla ordering a paracentesis today as a comfort measure. All agree to allow pt/SO time to decide next steps; pt needs continued medical management in the acute care setting. GEAR SETTER Chiqui will f/u w/[facility] to explain pt/SO not ready to commit to home w/Hospice plan at this time. POC/DCP still unfolding. VENKATESH Urias
--- NOTE | 2017-08-23 15:16 | CM.SWNOTE ---
Called [facility]: Updated on patient's need for more time to come to decision.
[2017-08-24] VITALS (8 sets, daily range): BP systolic 90–102; BP diastolic 51–64; PULSE 85–92; RESP 14–17; TEMP 36.2–36.3; O2SAT 96–100
[2017-08-24] MEDS: ONDANSETRON 8 MG in SODIUM CHLORIDE 0.9% 50 ML 216 ML IV ×4 (00:33→18:36)
[2017-08-24] MEDS: LORazepam 2 MG/ML SYRINGE 1 MG IV ×4 (02:12→15:20)
[2017-08-24] MEDS: SODIUM CHLORIDE 0.9% 1,000 ML 150 ML IV ×2 (02:20→09:02)
[2017-08-24] MEDS: HYDROMORPHONE PCA 6 MG/30 ML PCA.VIAL IV ×3 (06:43→21:41)
[2017-08-24] MEDS: ENOXAPARIN 40 MG/0.4 ML SYRINGE SUBCUT (10:54)
--- NOTE | 2017-08-24 11:47 | P.PN_ITS ---
Subjective Date Patient Seen: 08/24/17 Time Patient Seen: 11:34 Interval history: Little difference. Still has a sense of fullness in the abdomen although not as much as it has been. No nausea just yet. Taking sips of fluid but not much in the way of an appetite. No real pain at this time. Come back a little later and visit when his is there is well and review the status. Explained the general sense that given the severity of disease a lack of treatment options there is very little that we can offer that will allow much in the way of extension of life. Exam Vital Signs (past 8 hours): Vital Signs - 8 hr 3 08/24/17 05:32 08/24/17 07:00 08/24/17 07:50 Temperature 97.2 F L 97.3 F L Pulse Rate 85 89 Respiratory Rate 16 14 Blood Pressure 102/56 L 97/53 L Pulse Oximetry 97 97 97 Pulse Oximetry 97 Oxygen Delivery Method Room Air Oxygen Flow Rate 0 Narrative Exam Narrative: Frail, drowsy but no acute distress. HEENT unremarkable neck is benign chest clear to auscultation heart regular without murmur. Abdomen grossly distended trace tenderness some bowel tones. Extremities benign neurologically benign Objective Labs Result Diagrams: 08/23/17 05:12 08/23/17 05:12 Assessment & Plan (1) Metastatic renal cell carcinoma: Problem details: With Oncology opinion that no treatment is available at this time that would provide any significant benefit. Spoke with patient and 2 sets of family with his consent. Explained the scenario in detail for each of them answering any questions that they may have. And consensus at this point is that we can stop IV fluids and see what happens overnight if he is still doing fairly well we can consider home with hospice and comfort care. Current visit: Yes Status: Acute (2) Malignant ascites: Problem details: Continues rapid reaccumulation, now having 5 L of fluid to remove every couple days. Will cut back his IV fluid which is mostly just contributing to this problem but will continue to evaluate for paracentesis periodically. I understand this may be available at home with hospice. Will heplok IV. Will also anticipate need for additional paracentesis in the morning. Current visit: Yes Status: Acute (3) Weakness: Problem details: Profound related to above. Current visit: Yes Status: Acute (4) Renal failure (ARF), acute on chronic: Problem details: Profound related to above. Current visit: Yes Status: Acute (5) Oliguria: Problem details: Essentially no urine output at this time. Current visit: Yes Status: Acute (6) Terminal care: Problem details: Regrettably little evidence that there is any long-term survival likely. Current visit: Yes Status: Acute Plan: Assessment/Plan Narrative: Hep-Lock IV, request cm alert hospice for possible home tomorrow or Saturday. Essentially comfort measures at this time. Quality VTE Deep Vein Thrombosis/Pulmonary Embolism Present on Admission: No
--- NOTE | 2017-08-24 14:33 | CM.DPC ---
DCP: continued: Case again received and EMR from last 2 days reviewed. See that [facility] Angela provided an info visit yesterday. Consents were not signed. Called AMOS Holloway for update. She reports that if/when consents are signed DME will need to be delivered and the next open appointment for an RN to see a pt at home for a new start of service is next Saturday, 08/31. Openings may occur before then once pt on the list. Met now with Linda and her adult children. Pt lying still in bed, eyes closed, looks comfortable. Linda says they are still working with the various physicians on overall POC. She shows POLST form and says is having difficulties with Limited Intervenions vs Comfort Care. Discussed same. She does say the chapman is out now as pt did not want it anymore. The IVF are changed to TKO for medications. She says her really cannot keep anything down but he did have a good urine output after they took his chapman out 5 L out yesterday via paracentesis. Oncologist and surgeon did see pt and Linda with recommendation for hospice symptom management, perhaps to include peritoneal catheter placement for home drainage. Agreed to check in with Linda and pt again tomorrow and hope to talk also with Dr. Thibodeaux, on for weekend. Explained to Linda that [facility] process cannot be an option unless consents are signed as that only begins the process. P: continue to encourage home with family support and [facility] involvement. Pt's would need to have symptoms managed here with a tx plan that could be replicated at home. Will fax update to [facility] tomorrow and check in with Amie after discussion with Dr. Thibodeaux (ideally to include a discussion at same time with Linda.)
[2017-08-24] MEDS: ONDANSETRON 4 MG/2 ML INJ IV ×2 (16:43→20:54)
[2017-08-24] MEDS: METOCLOPRAMIDE 10 MG/2 ML INJ IV (18:23)
--- NOTE | 2017-08-24 22:41 | PC.NURSE ---
Evening Shift Note Pt continues to be nauseous with little oral intake while being continually drowsy. Supportive at bedside encouraging ice chips. No urine output on our shift, bladder scanner stating pt has 509 cc in bladder. Called Dr. Thibodeaux, made MD aware of little urine output, last charted output was at 08/24/17 at 0135, with continued nausea, and amount of urine in bladder. MD ordered one time In and Out catheter.
[2017-08-25 00:15] VITALS: O2SAT 97
[2017-08-25] MEDS: LORazepam 2 MG/ML SYRINGE 1 MG IV ×7 (00:51→22:07)
--- NOTE | 2017-08-25 01:58 | PC.NURSE ---
Cutter Tender Note 0130:Pt awake, out of bed by scooting to end of bed, got up in chair. He stated he didn't know how he got there, and felt drowsy. Assisted back to bed with walker and assisted to reposition. at bedside, did not hear him get up.
[2017-08-25] MEDS: ONDANSETRON 8 MG in SODIUM CHLORIDE 0.9% 50 ML 216 ML IV ×4 (03:16→22:07)
[2017-08-25] MEDS: METOCLOPRAMIDE 10 MG/2 ML INJ IV (04:18)
[2017-08-25 04:27] VITALS: BP 91/58; PULSE 90; RESP 16; TEMP 36.1
[2017-08-25] MEDS: HYDROMORPHONE PCA 6 MG/30 ML PCA.VIAL IV ×3 (06:18→22:08)
[2017-08-25 08:00] VITALS: BP 83/62; PULSE 95; RESP 18; TEMP 36.2; O2SAT 99
[2017-08-25] MEDS: ENOXAPARIN 40 MG/0.4 ML SYRINGE SUBCUT (09:23)
[2017-08-25 10:17] VITALS: O2SAT 99
--- NOTE | 2017-08-25 10:23 | PC.NURSE ---
Addendum entered by Jasmin Beatty R.N. 08/25/17 11:28: PAIN/NAUSEA - after speaking to , the dilaudid retail and restaurant continuous dose was increased to 0.2mg/hr, pt continues to have ongoing nausea and emesis at times, is able to rest with ativan, admin 1mg iv. Original Note: AM NOTE - pt is sitting in dangle position with his arms resting on spouse's shoulder in tripod type position, restless when awake, retching at times with brown emesis, does not answer questions easily, ra 99%, hr 95, dilaudid retail and restaurant at 0.2/10/6mg with 0.1mg/hr continuous, spouse states he had restless night, given 1mg iv ativan now and assisted with repositioning on his r side.
--- NOTE | 2017-08-25 10:24 | P.PN_ITS ---
Subjective Date Patient Seen: 08/25/17 Time Patient Seen: 10:19 Interval history: Patient mostly sleeping this morning but I speak with who has been present intermittently through the night. She notes that he had a rough night with increasing nausea and emesis and general discomfort. Did not get a lot of sleep. Reviewed status with her. Nursing did find a quantity of urine in the bladder with ultrasound last night so he did receive a in and out catheterization Exam Vital Signs (past 8 hours): Vital Signs - 8 hr 3 08/25/17 04:27 08/25/17 08:00 Temperature 97.0 F L 97.1 F L Pulse Rate 90 95 H Respiratory Rate 16 18 Blood Pressure 91/58 L 83/62 L Pulse Oximetry 99 Pulse Oximetry 99 Oxygen Delivery Method Room Air Oxygen Flow Rate 0 Narrative Exam Narrative: Sleeping briefly arousable but without response no clear distress. HEENT unremarkable chest fairly clear the heart regular abdomen grossly distended though not real firm and no evident pain or tenderness. Some bowel tones noted. Neurologically and extremities benign Objective Labs Result Diagrams: 08/23/17 05:12 08/23/17 05:12 Assessment & Plan (1) Metastatic renal cell carcinoma: Problem details: With Oncology opinion that no treatment is available at this time that would provide any significant benefit. Has been off fluids now but 24 hr blood pressure is fairly maintained but he seems in a slow decline. is accepting. Current visit: Yes Status: Acute (2) Renal failure (ARF), acute on chronic: Problem details: Profound related to above. Current visit: Yes Status: Acute (3) Oliguria: Problem details: Essentially no urine output at this time. Current visit: Yes Status: Acute (4) Terminal care: Problem details: Regrettably little evidence that there is any long-term survival likely. Reviewed briefly with today she is accepting. My sense is that he may not have much more time. Current visit: Yes Status: Acute (5) Admitted with dehydration: Problem details: Off IV fluids at this time given the ascites it is not clear that he got any benefit from a fluid Current visit: Yes Status: Acute (6) Acute hyperkalemia: Problem details: Not followed actively by presumed persistent. Current visit: Yes Status: Acute (7) Weakness: Problem details: Profound related to above. Current visit: Yes Status: Acute (8) Malignant ascites: Problem details: Continues rapid reaccumulation, now having 5 L of fluid to remove every couple days. Will cut back his IV fluid which is mostly just contributing to this problem but will continue to evaluate for paracentesis periodically. I understand this may be available at home with hospice. Will heplok IV. Will also anticipate need for additional paracentesis in the morning. The radiology has indicated they would prefer not to tap today. And given the stopping of IV fluids and also I think the bladder catheterization it does not seem quite so acute today. Current visit: Yes Status: Acute Plan: Assessment/Plan Narrative: Will increase the Dilaudid flow to 0.2, continue other interventions at this time. Anticipate a paracentesis in the morning. Quality VTE Deep Vein Thrombosis/Pulmonary Embolism Present on Admission: No
[2017-08-25] MEDS: SODIUM CHLORIDE 0.9% 500 ML 21 ML IV (12:35)
[2017-08-25 17:06] VITALS: BP 113/67; PULSE 89; RESP 16; TEMP 36.3; O2SAT 96
[2017-08-26] VITALS: BP 91/48; PULSE 88; RESP 16; TEMP 36.6; O2SAT 95
[2017-08-26 00:10] VITALS: O2SAT 96
[2017-08-26] MEDS: LORazepam 2 MG/ML SYRINGE 1 MG IV ×7 (00:43→18:45)
[2017-08-26] MEDS: ONDANSETRON 8 MG in SODIUM CHLORIDE 0.9% 50 ML 216 ML IV ×2 (02:09→06:08)
[2017-08-26] MEDS: HYDROMORPHONE PCA 6 MG/30 ML PCA.VIAL IV ×2 (06:40→14:49)
[2017-08-26 07:00] VITALS: O2SAT 95
[2017-08-26 11:00] VITALS: BP 83/41; PULSE 88; RESP 18
[2017-08-26] MEDS: SODIUM CHLORIDE 0.9% 500 ML 21 ML IV (12:30)
--- NOTE | 2017-08-26 12:37 | P.PN_ITS ---
Subjective Date Patient Seen: 08/26/17 Time Patient Seen: 12:30 Interval history: Found in bed with family surrounding. Unarousable, which has apparently been true for at least several hours. He is not coughing or throwing up as much as he had been. Seems comfortable. Discussed status with and other family they are comfortable with his current status and requesting specifically comfort care. He has been off IV fluids now for over a day remains on Dilaudid continuous and periodic lorazepam. Exam Vital Signs (past 8 hours): Vital Signs - 8 hr 3 08/26/17 07:00 08/26/17 11:00 Pulse Rate 88 Respiratory Rate 18 Blood Pressure 83/41 L Pulse Oximetry 95 Pulse Oximetry 95 Oxygen Delivery Method Nasal Cannula Oxygen Flow Rate 0 Narrative Exam Narrative: No apparent distress lying quietly in his side unarousable. Chest shows some dependent crackles heart regular without murmur no detectable bowel tones abdomen is markedly distended extremities with 1+ edema neurologically not available for examination. Objective Labs Result Diagrams: 08/23/17 05:12 08/23/17 05:12 Assessment & Plan (1) Metastatic renal cell carcinoma: Problem details: With Oncology opinion that no treatment is available at this time that would provide any significant benefit. Has been off fluids now over 24 hr ,blood pressure is fairly maintained but he seems in a slow decline. is accepting. Current visit: Yes Status: Acute (2) Renal failure (ARF), acute on chronic: Problem details: Profound related to above. Current visit: Yes Status: Acute (3) Oliguria: Problem details: Essentially no urine output at this time. Current visit: Yes Status: Acute (4) Terminal care: Problem details: Regrettably little evidence that there is any long-term survival likely. Reviewed briefly with today she is accepting. My sense is that he may not have much more time. This is comfort care only now. Current visit: Yes Status: Acute (5) Admitted with dehydration: Problem details: Off IV fluids at this time given the ascites it is not clear that he got any benefit from a fluid Current visit: Yes Status: Acute (6) Acute hyperkalemia: Problem details: Not followed actively by presumed persistent. Current visit: Yes Status: Acute (7) Malignant ascites: Problem details: Seems perhaps somewhat stable. Lack of IV fluids I think is helping this. Had been throwing up for the frequently yesterday that seemed to have calmed. Had hopefully get a another paracentesis radiology unwilling to do yesterday and as patient could not sign consent and was not present it did not occur this morning. Not real clear that it is going to make a lot of difference and agrees. Current visit: Yes Status: Acute Time Spent With Patient Time with patient: 25 - 35 minutes Quality VTE Deep Vein Thrombosis/Pulmonary Embolism Present on Admission: No
--- NOTE | 2017-08-26 13:46 | CM.DPNOTE ---
DCP/continued: Received verbal referral from RN re: patient's current comfort measures. Per RN, she is concerned because patient continues to undergo procedures to remove the fluid from his stomach (daily). At this time transferring patient to/from procedure seems more painful than beneficial. RADIOLOGY PRACTITIONER ASSISTANT instructed RN to contact re: care conference and/or hospitalist consult. RN agrees and will contact MD. It is anticipated that once patient completely transitioned to comfort care that he will . P: CM team to continue to follow closely and offer support to staff/family. CM team available for care conference if needed. VENKATESH Mccarthy
--- NOTE | 2017-08-26 15:28 | PC.NURSE ---
Pt without urine production this shift. Dr is aware. 1500
--- NOTE | 2017-08-26 15:29 | PC.NURSE ---
Am shift Pt has continued to have decreased mentation and slow responses to staff and family interaction .Updated SO at bedside. 0900 to DI for paracentesis, Pt is lethargic, and having difficulty with expressing needs. assisted with positioning 909-DI nurse Melisa called with update, not able to get signed consent. Radiologist to eval 927-Pt returned to room, no paracentesis done Pt is unable to sign consent. Lengthy discussion with SO about goals and comfort care. SO would like to have discussion with Pt about POC and transitioning to comfort care 1045-Joann SO is agreeable to comfort measures and we will have Dr Thibodeaux address at visit 1245-Dr Thibodeaux in room, verbalized Comfort Measures. 1430-Ativan going 1mg every 2 hours. This is keeping Pt comfortable and SO wishes to continue this.
[2017-08-26] MEDS: ONDANSETRON 4 MG/2 ML INJ IV (18:48)
--- NOTE | 2017-08-26 23:02 | PC.NURSE ---
Wendy shift- Pt at 2022, in the arms of his Joann. Pt bathed and honored with oils from honor box, as well as, prayers and honor words spoken. [facility] in [place] called and notified. Family in room and other family notified. release paperwork ready when Melinda arrives at nurses station.
--- NOTE | 2017-08-27 08:51 | CM.DPNOTE ---
DCP Per MD, pt last night (08/26/17) in the evening here at [facility] as expected and no needs identified. VENKATESH Gaffney
== END 2017-08-26 20:25 | disposition expired | DRG 240 ==
LOC: ED 22:34 → AC 08-19 00:04
PROVIDERS: Family Medicine; Admitting Provider Family Medicine; Emergency Provider Emergency Medicine; Family Provider Family Medicine; PCP Family Medicine; Visit Provider Family Medicine
DX: C78.6 Secondary malignant neoplasm of retroperitoneum and peritoneum (principal); E43 Unspecified severe protein-calorie malnutrition; E87.5 Hyperkalemia; C64.2 Malignant neoplasm of left kidney, except renal pelvis; E86.0 Dehydration; G89.3 Neoplasm related pain (acute) (chronic); E87.1 Hypo-osmolality and hyponatremia; I10 Essential (primary) hypertension; Z66 Do not resuscitate; R18.0 Malignant ascites; C77.1 Secondary and unspecified malignant neoplasm of intrathoracic lymph nodes; R11.0 Nausea; F32.9 Major depressive disorder, single episode, unspecified; N17.9 Acute kidney failure, unspecified; Z51.5 Encounter for palliative care
CPT/HCPCS: 36415; 36591; 36592; 49083; 76705; 80048; 80053; 83690; 85025; 85610; 87070; 87075; 87205; 93005; 96374; 96375; 96376; 99205; 99215; 99283; J1170; J1650; J1940; J2060; J2405; J2765; J3230; J7050